=== PATIENT | male | born 1940 | race Caucasian/White ===

== ENCOUNTER → 2017-11-13 | Outpatient (CLI) | payer MEDICARE ==
[~2017-11-13] MED LIST: ACET500 PO; ALLO100 PO; AMLO10 PO; ASPI81CH PO; ASPI81EC PO; ATOR10 PO; Augmentin 875-1 EACH PO; CALACE667G PO; CALC.25 PO; CALC667 PO; CARV6.25 PO; CEPH250SUA PO; Cephalexin500 MG PO; ENALAPRIL; ERGO50000 PO; FENO145 PO; FINA5 PO; FISH1000 PO; FLUC150A PO; FLUC200 PO; FURO20 PO; FURO40 PO; FUROSEMIDE; GABA400 PO; GABA600 PO; GEMF600 PO; GLIM4 PO; GLIP10 PO; HYDACE5 PO; HYDACE5325 PO; HYDR1TAB94 PO; Humalog100 UNIT/1; INSLI100I SC; INSULANPEN SC; INSULIN; LIDO700A20 TOP; LOSA50 PO; MELATONIN5 M1 PO; METO50ER PO; MULVITMIND PO; MULVITMINF PO; MYRBETRIQ25 MG PO; Norco 5-325 Ta1 EACH PO; OXYC5 PO; PANT40 PO; PIOG15 PO; PRED20 PO; WARF10 PO; WARF5 PO; WARF7.5 PO; Zofran Odt4 MG SL; Zofran8 MG PO
== END | disposition home or self-care (01) ==
LOC: LAB 14:30
DX: N39.0 Urinary tract infection, site not specified (principal); E11.65 Type 2 diabetes mellitus with hyperglycemia
CPT/HCPCS: 87086

== ENCOUNTER 2018-03-03 11:30 | Emergency (ER) | payer MEDICARE ==
[~2018-03-03] VITALS: Ht 165.1 cm; Wt 90.7 kg
[~2018-03-03 11:30] MED LIST changes: -ATOR10 PO; -CEPH250SUA PO; -Cephalexin500 MG PO; -FLUC150A PO; -FLUC200 PO; -HYDR1TAB94 PO; -LIDO700A20 TOP; -MELATONIN5 M1 PO; +METO25 PO; -METO50ER PO; -OXYC5 PO; -PANT40 PO; -Zofran Odt4 MG SL; -Zofran8 MG PO
[2018-03-03 12:55] LABS: BASOPHILS ABSOLUTE AUTO 0.06 K/mm3 (0.00-0.23); BASOPHILS PERCENT AUTO 1 % (0-2); EOSINOPHILS ABSOLUTE AUTO 0.22 K/mm3 (0.00-0.68); EOSINOPHILS PERCENT AUTO 2 % (0-6); Hematocrit 37.2 % (37.0-53.0); Hemoglobin 12.2 g/dL (13.5-17.5); IMMATURE GRAN ABSOLUTE AUTO 0.03 K/mm3 (0.00-0.10); IMMATURE GRAN PERCENT AUTO 0 % (0-1); LYMPHOCYTES ABSOLUTE AUTO 1.28 K/mm3 (0.84-5.20); LYMPHOCYTES PERCENT AUTO 13 % (21-46); MONOCYTES PERCENT AUTO 8 % (4-13); Mean Corpuscular HGB 27.4 pg (26.0-34.0); Mean Corpuscular HGB Conc 32.8 g/dL (31.5-36.5); Mean Corpuscular Volume 83 fL (80-100); Mean Platelet Volume 8.7 fL (9.1-12.4); NEUTROPHILS ABSOLUTE AUTO 7.36 K/mm3 (1.96-9.15); NEUTROPHILS PERCENT AUTO 76 % (41-73); Platelet Count 251 K/mm3 (150-400); RDW Coefficient Variation 13.4 % (11.7-14.2); RDW Standard Deviation 41.3 fL (35.1-46.3); Red Blood Cell Count 4.46 M/mm3 (4.30-5.90); White Blood Cell Count 9.75 K/mm3 (4.00-11.30)
[2018-03-03 13:06] LABS: Albumin, Blood 3.5 g/dL (3.4-5.0); Albumin/Globulin Ratio 0.9 (0.8-1.8); Bilirubin, Total 0.7 mg/dL (0.1-1.0); Bun/Creatinine Ratio 13.1 (12.0-20.0); Creatinine, Blood 1.76 mg/dL (0.60-1.20); Globulin, Blood 3.9 g/dL (2.2-4.0); Potassium, Blood 4.3 mmol/L (3.5-5.5); Total Protein, Blood 7.4 g/dL (6.4-8.2)
[2018-03-03] MEDS ORDERED: Cephalexin500 MG PO (13:34)
== END 2018-03-03 14:42 | disposition home or self-care (01) ==
LOC: ER 11:30
PROVIDERS: Emergency Medicine
DX: R09.81 Nasal congestion (principal); I10 Essential (primary) hypertension; E11.42 Type 2 diabetes mellitus with diabetic polyneuropathy; Z79.899 Other long term (current) drug therapy; Z79.82 Long term (current) use of aspirin; Z79.4 Long term (current) use of insulin; Z79.01 Long term (current) use of anticoagulants
CPT/HCPCS: 36415; 71045; 80053; 85025; 93005; 93010; 99283

== ENCOUNTER → 2018-03-05 | Outpatient (CLI) | payer MEDICARE ==
[~2018-03-05] MED LIST changes: +Cephalexin500 MG PO
== END ==
LOC: PLD 13:55 → LAB SHORT 13:55
DX: C44.619 Basal cell carcinoma of skin of left upper limb, including shoulder (principal)
CPT/HCPCS: 88305

== ENCOUNTER 2018-03-28 20:50 | Inpatient (IN) | payer MEDICARE ==
[~2018-03-28] VITALS: Ht 177.8 cm; Wt 89.8 kg
[2018-03-28 21:08] LABS: BASOPHILS ABSOLUTE AUTO 0.02 K/mm3 (0.00-0.23); BASOPHILS PERCENT AUTO 0 % (0-2); EOSINOPHILS ABSOLUTE AUTO 0.03 K/mm3 (0.00-0.68); EOSINOPHILS PERCENT AUTO 0 % (0-6); Hematocrit 33.8 % (37.0-53.0); Hemoglobin 11.3 g/dL (13.5-17.5); IMMATURE GRAN ABSOLUTE AUTO 0.05 K/mm3 (0.00-0.10); IMMATURE GRAN PERCENT AUTO 0 % (0-1); LYMPHOCYTES ABSOLUTE AUTO 1.45 K/mm3 (0.84-5.20); LYMPHOCYTES PERCENT AUTO 11 % (21-46); MONOCYTES ABSOLUTE AUTO 2.18 K/mm3 (0.16-1.47); MONOCYTES PERCENT AUTO 17 % (4-13); Mean Corpuscular HGB 27.7 pg (26.0-34.0); Mean Corpuscular HGB Conc 33.4 g/dL (31.5-36.5); Mean Corpuscular Volume 83 fL (80-100); Mean Platelet Volume 9.2 fL (9.1-12.4); NEUTROPHILS ABSOLUTE AUTO 9.51 K/mm3 (1.96-9.15); NEUTROPHILS PERCENT AUTO 72 % (41-73); Platelet Count 129 K/mm3 (150-400); RDW Coefficient Variation 14.1 % (11.7-14.2); RDW Standard Deviation 42.6 fL (35.1-46.3); Red Blood Cell Count 4.08 M/mm3 (4.30-5.90); White Blood Cell Count 13.24 K/mm3 (4.00-11.30)
[2018-03-28 21:22] LABS: International Normalized Ratio 1.36; Prothrombin Time Results 14.3 Sec (9.7-11.5)
[2018-03-28 21:25] LABS: Albumin, Blood 3.3 g/dL (3.4-5.0); Albumin/Globulin Ratio 0.9 (0.8-1.8); Bilirubin, Total 1.4 mg/dL (0.1-1.0); Bun/Creatinine Ratio 13.5 (12.0-20.0); Calcium, Blood 9.1 mg/dL (8.5-10.1); Creatinine, Blood 1.85 mg/dL (0.60-1.20); Globulin, Blood 3.8 g/dL (2.2-4.0); Total Protein, Blood 7.1 g/dL (6.4-8.2)
[2018-03-28] MEDS ORDERED: ATOR10 PO (21:30)
[2018-03-28 22:35] LABS: Source, Urine Clean Catch
[2018-03-28 22:45] LABS: Appearance, Urine Clear (Clear); Bilirubin, Urine Neg (Neg); Blood, Urine 2+ (Neg); Color, Urine Yellow (P-Yellow); Glucose Qualitative, Urine Neg (Neg); Ketones, Urine Neg (Neg); Leukocyte Esterase, Urine 1+ (Neg); Nitrite, Urine Neg (Neg); Protein, Urine 3+ (Neg); Specific Gravity, Urine 1.015 (1.003-1.022); Urobilinogen, Urine NORM (Normal)
[2018-03-28 23:05] LABS: Amorphous Light (0-Heavy); Bacteria Few /hpf; Squamous Epithelial Cells Few /hpf (Few); White Blood Cells, Urine 0-2 /hpf (0-5)
[2018-03-28 23:56] LABS: C-REACTIVE PROTEIN, EXT RANGE 15.7 mg/dL (0.000-0.300)
[2018-03-29 00:14] LABS: Thyroid Stimulating Hormone 1.99 uIU/mL (0.360-4.800)
[2018-03-29 04:13] LABS: Source, Urine Clean Catch
[2018-03-29 04:16] LABS: Appearance, Urine Clear (Clear); Bilirubin, Urine Neg (Neg); Blood, Urine 2+ (Neg); Color, Urine Yellow (P-Yellow); Glucose Qualitative, Urine Neg (Neg); Ketones, Urine Neg (Neg); Leukocyte Esterase, Urine 1+ (Neg); Nitrite, Urine Neg (Neg); Protein, Urine 3+ (Neg); Specific Gravity, Urine 1.015 (1.003-1.022); Urobilinogen, Urine NORM (Normal)
[2018-03-29 05:00] LABS: Bacteria Few /hpf; Squamous Epithelial Cells Few /hpf (Few)
[2018-03-29 05:39] LABS: Mean Corpuscular HGB 26.6 pg (26.0-34.0); Mean Corpuscular HGB Conc 32.4 g/dL (31.5-36.5); Mean Corpuscular Volume 82 fL (80-100); Mean Platelet Volume 9.9 fL (9.1-12.4); Platelet Count 124 K/mm3 (150-400); RDW Coefficient Variation 14.2 % (11.7-14.2); RDW Standard Deviation 42.5 fL (35.1-46.3); Red Blood Cell Count 4.13 M/mm3 (4.30-5.90); White Blood Cell Count 12.28 K/mm3 (4.00-11.30)
[2018-03-29 05:51] LABS: International Normalized Ratio 1.37; Prothrombin Time Results 14.4 Sec (9.7-11.5)
[2018-03-30 05:18] LABS: Hematocrit 30.4 % (37.0-53.0); Mean Corpuscular HGB 27.2 pg (26.0-34.0); Mean Corpuscular HGB Conc 32.9 g/dL (31.5-36.5); Mean Corpuscular Volume 83 fL (80-100); Mean Platelet Volume 9.1 fL (9.1-12.4); Platelet Count 133 K/mm3 (150-400); RDW Standard Deviation 42.4 fL (35.1-46.3); Red Blood Cell Count 3.67 M/mm3 (4.30-5.90); White Blood Cell Count 10.61 K/mm3 (4.00-11.30)
[2018-03-30 05:33] LABS: International Normalized Ratio 1.56; Prothrombin Time Results 16.4 Sec (9.7-11.5)
[2018-03-30 05:38] LABS: Bun/Creatinine Ratio 15.7 (12.0-20.0); Calcium, Blood 8.3 mg/dL (8.5-10.1); Creatinine, Blood 1.85 mg/dL (0.60-1.20); Potassium, Blood 3.6 mmol/L (3.5-5.5)
[2018-03-31 04:20] LABS: BASOPHILS ABSOLUTE AUTO 0.02 K/mm3 (0.00-0.23); BASOPHILS PERCENT AUTO 0 % (0-2); EOSINOPHILS ABSOLUTE AUTO 0.05 K/mm3 (0.00-0.68); EOSINOPHILS PERCENT AUTO 0 % (0-6); Hemoglobin 10.8 g/dL (13.5-17.5); IMMATURE GRAN ABSOLUTE AUTO 0.05 K/mm3 (0.00-0.10); IMMATURE GRAN PERCENT AUTO 0 % (0-1); LYMPHOCYTES ABSOLUTE AUTO 1.04 K/mm3 (0.84-5.20); LYMPHOCYTES PERCENT AUTO 8 % (21-46); MONOCYTES ABSOLUTE AUTO 1.16 K/mm3 (0.16-1.47); MONOCYTES PERCENT AUTO 9 % (4-13); Mean Corpuscular HGB 27.1 pg (26.0-34.0); Mean Corpuscular HGB Conc 32.7 g/dL (31.5-36.5); Mean Corpuscular Volume 83 fL (80-100); Mean Platelet Volume 9.4 fL (9.1-12.4); NEUTROPHILS ABSOLUTE AUTO 10.26 K/mm3 (1.96-9.15); NEUTROPHILS PERCENT AUTO 82 % (41-73); Platelet Count 171 K/mm3 (150-400); RDW Coefficient Variation 14.2 % (11.7-14.2); RDW Standard Deviation 42.6 fL (35.1-46.3); Red Blood Cell Count 3.99 M/mm3 (4.30-5.90); White Blood Cell Count 12.58 K/mm3 (4.00-11.30)
[2018-03-31 04:34] LABS: Prothrombin Time Results 21.2 Sec (9.7-11.5)
[2018-03-31 04:35] LABS: Bun/Creatinine Ratio 18.5 (12.0-20.0); Calcium, Blood 8.5 mg/dL (8.5-10.1); Creatinine, Blood 1.95 mg/dL (0.60-1.20); Potassium, Blood 4.1 mmol/L (3.5-5.5)
[2018-04-01 04:27] LABS: International Normalized Ratio 3.28; Prothrombin Time Results 35.4 Sec (9.7-11.5)
[2018-04-02 08:43] LABS: BASOPHILS ABSOLUTE AUTO 0.03 K/mm3 (0.00-0.23); BASOPHILS PERCENT AUTO 0 % (0-2); EOSINOPHILS ABSOLUTE AUTO 0.19 K/mm3 (0.00-0.68); EOSINOPHILS PERCENT AUTO 2 % (0-6); Hematocrit 32.2 % (37.0-53.0); Hemoglobin 10.5 g/dL (13.5-17.5); IMMATURE GRAN ABSOLUTE AUTO 0.02 K/mm3 (0.00-0.10); IMMATURE GRAN PERCENT AUTO 0 % (0-1); LYMPHOCYTES ABSOLUTE AUTO 1.06 K/mm3 (0.84-5.20); LYMPHOCYTES PERCENT AUTO 14 % (21-46); MONOCYTES ABSOLUTE AUTO 0.93 K/mm3 (0.16-1.47); MONOCYTES PERCENT AUTO 12 % (4-13); Mean Corpuscular HGB 26.9 pg (26.0-34.0); Mean Corpuscular HGB Conc 32.6 g/dL (31.5-36.5); Mean Corpuscular Volume 82 fL (80-100); Mean Platelet Volume 8.9 fL (9.1-12.4); NEUTROPHILS PERCENT AUTO 72 % (41-73); Platelet Count 223 K/mm3 (150-400); RDW Coefficient Variation 13.9 % (11.7-14.2); RDW Standard Deviation 41.8 fL (35.1-46.3); Red Blood Cell Count 3.91 M/mm3 (4.30-5.90); White Blood Cell Count 7.83 K/mm3 (4.00-11.30)
[2018-04-02 08:49] LABS: International Normalized Ratio 2.79; Prothrombin Time Results 29.9 Sec (9.7-11.5)
[2018-04-02 09:01] LABS: Anion Gap 12 mmol/L (6-16); Blood Urea Nitrogen 44 mg/dL (8-24); Bun/Creatinine Ratio 22.8 (12.0-20.0); CO2, Blood 27 mmol/L (21-32); Calcium, Blood 8.4 mg/dL (8.5-10.1); Chloride, Blood 103 mmol/L (98-108); Creatinine, Blood 1.93 mg/dL (0.60-1.20); Glomerular Filtration Rate 36 (60-); Glucose, Blood 81 mg/dL (70-99); Potassium, Blood 3.3 mmol/L (3.5-5.5); Sodium, Blood 142 mmol/L (136-145); Vancomycin, Trough 19.7 ug/mL (5.0-10.0)
[2018-04-03 04:00] LABS: Calcium, Blood 8.1 mg/dL (8.5-10.1); Creatinine, Blood 1.92 mg/dL (0.60-1.20); Potassium, Blood 3.3 mmol/L (3.5-5.5)
[2018-04-03 07:14] LABS: International Normalized Ratio 2.63; Prothrombin Time Results 28.2 Sec (9.7-11.5)
[2018-04-03] MEDS ORDERED: CEPH250SUA PO (10:59)
== END 2018-04-03 11:17 | disposition home or self-care (01) | DRG 602 ==
LOC: ER 20:50 → MEDS 23:18 → PCU 03-29 00:18 → MEDS 03-29 00:30 → PCU 03-31 08:06 → MEDS 04-02 13:58 → ENPENDDIS 04-03 09:00 → MEDS 04-03 11:17
PROVIDERS: Emergency Medicine; Hospitalist; Internal Medicine; Pharmacist
DX: L03.113 Cellulitis of right upper limb (principal); G92 Toxic encephalopathy; J96.01 Acute respiratory failure with hypoxia; J98.11 Atelectasis; E11.22 Type 2 diabetes mellitus with diabetic chronic kidney disease; I12.9 Hypertensive chronic kidney disease with stage 1 through stage 4 chronic kidney disease, or unspecified chronic kidney disease; N18.3 Chronic kidney disease, stage 3 (moderate); M10.9 Gout, unspecified; Z86.73 Personal history of transient ischemic attack (TIA), and cerebral infarction without residual deficits; Z95.2 Presence of prosthetic heart valve; G62.9 Polyneuropathy, unspecified; I48.91 Unspecified atrial fibrillation
CPT/HCPCS: 36415; 70450; 71046; 71250; 73070; 73090; 73130; 73200; 80048; 80053; 80202; 81001; 82607; 82947; 83605; 83880; 84145; 84443; 85025; 85027; 85610; 85651; 86140; 87040; 87086; 93005; 93010; 94667; 96365; 97110; 97116; 97161; 97165; 97530; 97535; 99285; G8978; G8979; G8987; G8988; J0690; J1650; J1815; J1940; J2405; J2543; J3370; J7030; J7050

== ENCOUNTER 2018-04-11 09:27 | Inpatient (IN) | payer MEDICARE ==
[~2018-04-11] VITALS: Ht 162.6 cm; Wt 82.9 kg
[~2018-04-11 09:27] MED LIST changes: +ATOR10 PO; +CEPH250SUA PO
[2018-04-11 10:24] LABS: Source, Urine Clean Catch
[2018-04-11 10:30] LABS: BASOPHILS ABSOLUTE AUTO 0.05 K/mm3 (0.00-0.23); BASOPHILS PERCENT AUTO 0 % (0-2); EOSINOPHILS ABSOLUTE AUTO 0.08 K/mm3 (0.00-0.68); EOSINOPHILS PERCENT AUTO 1 % (0-6); Hematocrit 31.6 % (37.0-53.0); Hemoglobin 10.2 g/dL (13.5-17.5); IMMATURE GRAN PERCENT AUTO 1 % (0-1); LYMPHOCYTES ABSOLUTE AUTO 1.41 K/mm3 (0.84-5.20); LYMPHOCYTES PERCENT AUTO 9 % (21-46); MONOCYTES ABSOLUTE AUTO 2.42 K/mm3 (0.16-1.47); MONOCYTES PERCENT AUTO 16 % (4-13); Mean Corpuscular HGB 26.8 pg (26.0-34.0); Mean Corpuscular HGB Conc 32.3 g/dL (31.5-36.5); Mean Corpuscular Volume 83 fL (80-100); Mean Platelet Volume 8.6 fL (9.1-12.4); NEUTROPHILS PERCENT AUTO 74 % (41-73); Platelet Count 257 K/mm3 (150-400); RDW Coefficient Variation 14.2 % (11.7-14.2); RDW Standard Deviation 42.6 fL (35.1-46.3); Red Blood Cell Count 3.81 M/mm3 (4.30-5.90); White Blood Cell Count 15.56 K/mm3 (4.00-11.30)
[2018-04-11 10:32] LABS: Bilirubin, Urine Neg (Neg); Blood, Urine 4+ (Neg); Glucose Qualitative, Urine Neg (Neg); Ketones, Urine Neg (Neg); Leukocyte Esterase, Urine 3+ (Neg); Nitrite, Urine Neg (Neg); Protein, Urine 3+ (Neg); Specific Gravity, Urine 1.015 (1.003-1.022); Urobilinogen, Urine NORM (Normal)
[2018-04-11 10:47] LABS: Albumin, Blood 2.8 g/dL (3.4-5.0); Albumin/Globulin Ratio 0.7 (0.8-1.8); Bilirubin, Total 1.6 mg/dL (0.1-1.0); Bun/Creatinine Ratio 15.6 (12.0-20.0); Calcium, Blood 8.8 mg/dL (8.5-10.1); Creatinine, Blood 2.05 mg/dL (0.60-1.20); Globulin, Blood 4.2 g/dL (2.2-4.0); Potassium, Blood 4.8 mmol/L (3.5-5.5)
[2018-04-11 10:53] LABS: International Normalized Ratio 1.54; Prothrombin Time Results 16.2 Sec (9.7-11.5)
[2018-04-11 11:15] LABS: Appearance, Urine Cloudy (Clear); Color, Urine Yellow (P-Yellow)
[2018-04-11] MEDS ORDERED: MELA3 PO (11:15)
[2018-04-11 11:18] LABS: White Blood Cells, Urine TNTC /hpf (0-5)
[2018-04-11 11:20] LABS: Bacteria Mod /hpf; Squamous Epithelial Cells Few /hpf (Few); Yeast/Fungi Urine Mod /hpf
[2018-04-11] MEDS ORDERED: ACET500 PO (17:17)
[2018-04-11] MEDS ORDERED: OXYC5 PO (17:17)
[2018-04-12 05:19] LABS: BASOPHILS ABSOLUTE AUTO 0.06 K/mm3 (0.00-0.23); BASOPHILS PERCENT AUTO 0 % (0-2); EOSINOPHILS ABSOLUTE AUTO 0.11 K/mm3 (0.00-0.68); EOSINOPHILS PERCENT AUTO 1 % (0-6); Hematocrit 30.7 % (37.0-53.0); Hemoglobin 9.9 g/dL (13.5-17.5); IMMATURE GRAN PERCENT AUTO 1 % (0-1); LYMPHOCYTES ABSOLUTE AUTO 1.39 K/mm3 (0.84-5.20); LYMPHOCYTES PERCENT AUTO 7 % (21-46); MONOCYTES ABSOLUTE AUTO 2.61 K/mm3 (0.16-1.47); MONOCYTES PERCENT AUTO 14 % (4-13); Mean Corpuscular HGB 26.5 pg (26.0-34.0); Mean Corpuscular HGB Conc 32.2 g/dL (31.5-36.5); Mean Corpuscular Volume 82 fL (80-100); Mean Platelet Volume 8.7 fL (9.1-12.4); NEUTROPHILS ABSOLUTE AUTO 14.45 K/mm3 (1.96-9.15); NEUTROPHILS PERCENT AUTO 77 % (41-73); Platelet Count 258 K/mm3 (150-400); RDW Standard Deviation 42.3 fL (35.1-46.3); Red Blood Cell Count 3.73 M/mm3 (4.30-5.90); White Blood Cell Count 18.72 K/mm3 (4.00-11.30)
[2018-04-12 05:32] LABS: International Normalized Ratio 1.65; Prothrombin Time Results 17.4 Sec (9.7-11.5)
[2018-04-12 05:41] LABS: Bun/Creatinine Ratio 17.4 (12.0-20.0); Calcium, Blood 8.8 mg/dL (8.5-10.1); Creatinine, Blood 2.18 mg/dL (0.60-1.20); Potassium, Blood 4.5 mmol/L (3.5-5.5)
[2018-04-13 05:35] LABS: International Normalized Ratio 1.73; Prothrombin Time Results 18.3 Sec (9.7-11.5)
[2018-04-14 05:22] LABS: Hematocrit 28.2 % (37.0-53.0); Hemoglobin 9.2 g/dL (13.5-17.5); Mean Corpuscular HGB 26.9 pg (26.0-34.0); Mean Corpuscular HGB Conc 32.6 g/dL (31.5-36.5); Mean Corpuscular Volume 83 fL (80-100); Mean Platelet Volume 8.6 fL (9.1-12.4); Platelet Count 268 K/mm3 (150-400); RDW Standard Deviation 41.7 fL (35.1-46.3); Red Blood Cell Count 3.42 M/mm3 (4.30-5.90); White Blood Cell Count 10.43 K/mm3 (4.00-11.30)
[2018-04-14 05:36] LABS: International Normalized Ratio 2.74; Prothrombin Time Results 29.4 Sec (9.7-11.5)
[2018-04-14 05:42] LABS: Bun/Creatinine Ratio 22.9 (12.0-20.0); Calcium, Blood 8.9 mg/dL (8.5-10.1); Creatinine, Blood 2.05 mg/dL (0.60-1.20); Potassium, Blood 3.8 mmol/L (3.5-5.5)
[2018-04-14] MEDS ORDERED: FLUC200 PO (12:27)
== END 2018-04-14 13:49 | disposition home or self-care (01) | DRG 291 ==
LOC: ER 09:27 → MEDS 12:19 → ENPENDDIS 04-14 11:00 → MEDS 04-14 13:49
PROVIDERS: Emergency Medicine; Family Medicine; Internal Medicine
DX: I13.0 Hypertensive heart and chronic kidney disease with heart failure and stage 1 through stage 4 chronic kidney disease, or unspecified chronic kidney disease (principal); J96.01 Acute respiratory failure with hypoxia; G92 Toxic encephalopathy; I50.33 Acute on chronic diastolic (congestive) heart failure; B37.49 Other urogenital candidiasis; M10.9 Gout, unspecified; E11.42 Type 2 diabetes mellitus with diabetic polyneuropathy; Z79.4 Long term (current) use of insulin; Z79.01 Long term (current) use of anticoagulants; N18.3 Chronic kidney disease, stage 3 (moderate); I67.9 Cerebrovascular disease, unspecified; G89.29 Other chronic pain; Z79.891 Long term (current) use of opiate analgesic; R26.89 Other abnormalities of gait and mobility; Z95.2 Presence of prosthetic heart valve; D72.829 Elevated white blood cell count, unspecified; I70.90 Unspecified atherosclerosis; I08.3 Combined rheumatic disorders of mitral, aortic and tricuspid valves; E11.22 Type 2 diabetes mellitus with diabetic chronic kidney disease
CPT/HCPCS: 36415; 71046; 80048; 80053; 81001; 82947; 83605; 83880; 84484; 85025; 85027; 85610; 85730; 87040; 87086; 93005; 93010; 93306; 93971; 96365; 96366; 96367; 96375; 97110; 97116; 97161; 97166; 97535; 99285; G8978; G8979; G8987; G8988; J0696; J1815; J1940; J2405; J2543; J3370; J7030

== ENCOUNTER 2018-05-03 10:19 | Emergency (ER) | payer MEDICARE ==
[~2018-05-03] VITALS: Ht 165.1 cm; Wt 167.0 kg
[~2018-05-03 10:19] MED LIST changes: +FLUC200 PO; +MELA3 PO; +OXYC5 PO
[2018-05-03] MEDS ORDERED: FINA5 PO (10:35)
[2018-05-03] MEDS ORDERED: PANT40 PO (10:37)
[2018-05-03 10:57] LABS: BASOPHILS ABSOLUTE AUTO 0.04 K/mm3 (0.00-0.23); BASOPHILS PERCENT AUTO 1 % (0-2); EOSINOPHILS ABSOLUTE AUTO 0.15 K/mm3 (0.00-0.68); EOSINOPHILS PERCENT AUTO 3 % (0-6); Hematocrit 39.2 % (37.0-53.0); Hemoglobin 12.6 g/dL (13.5-17.5); IMMATURE GRAN ABSOLUTE AUTO 0.01 K/mm3 (0.00-0.10); IMMATURE GRAN PERCENT AUTO 0 % (0-1); LYMPHOCYTES ABSOLUTE AUTO 1.36 K/mm3 (0.84-5.20); LYMPHOCYTES PERCENT AUTO 25 % (21-46); MONOCYTES ABSOLUTE AUTO 0.63 K/mm3 (0.16-1.47); MONOCYTES PERCENT AUTO 12 % (4-13); Mean Corpuscular HGB 26.2 pg (26.0-34.0); Mean Corpuscular HGB Conc 32.1 g/dL (31.5-36.5); Mean Corpuscular Volume 82 fL (80-100); Mean Platelet Volume 8.6 fL (9.1-12.4); NEUTROPHILS PERCENT AUTO 60 % (41-73); Platelet Count 155 K/mm3 (150-400); RDW Coefficient Variation 16.5 % (11.7-14.2); RDW Standard Deviation 48.6 fL (35.1-46.3); Red Blood Cell Count 4.81 M/mm3 (4.30-5.90); White Blood Cell Count 5.49 K/mm3 (4.00-11.30)
[2018-05-03 11:15] LABS: Troponin I 0.05 ng/mL (0.000-0.040)
[2018-05-03 11:17] LABS: Albumin, Blood 3.5 g/dL (3.4-5.0); Albumin/Globulin Ratio 0.9 (0.8-1.8); Bilirubin, Total 0.7 mg/dL (0.1-1.0); Bun/Creatinine Ratio 23.9 (12.0-20.0); Calcium, Blood 9.1 mg/dL (8.5-10.1); Creatinine, Blood 1.76 mg/dL (0.60-1.20); Globulin, Blood 4.1 g/dL (2.2-4.0); Potassium, Blood 3.7 mmol/L (3.5-5.5); Total Protein, Blood 7.6 g/dL (6.4-8.2)
[2018-05-03] MEDS ORDERED: Zofran Odt4 MG SL (13:03)
[2018-05-03] MEDS ORDERED: FLUC150A PO (13:04)
== END 2018-05-03 13:26 | disposition home or self-care (01) ==
LOC: ER 10:19
PROVIDERS: Emergency Medicine
DX: K52.9 Noninfective gastroenteritis and colitis, unspecified (principal); B37.0 Candidal stomatitis; I10 Essential (primary) hypertension; E11.42 Type 2 diabetes mellitus with diabetic polyneuropathy; Z79.899 Other long term (current) drug therapy; Z79.01 Long term (current) use of anticoagulants; Z79.4 Long term (current) use of insulin
CPT/HCPCS: 36415; 74022; 80053; 83690; 84484; 85025; 93005; 93010; 96361; 96374; 99283; J2405; J7030

== ENCOUNTER 2018-06-17 12:28 | Emergency (ER) | payer MEDICARE ==
[~2018-06-17] VITALS: Ht 165.1 cm; Wt 78.9 kg
[~2018-06-17 12:28] MED LIST changes: +FLUC150A PO; +PANT40 PO; +Zofran Odt4 MG SL
[2018-06-17 13:59] LABS: BASOPHILS ABSOLUTE AUTO 0.02 K/mm3 (0.00-0.23); BASOPHILS PERCENT AUTO 0 % (0-2); EOSINOPHILS ABSOLUTE AUTO 0.16 K/mm3 (0.00-0.68); EOSINOPHILS PERCENT AUTO 2 % (0-6); IMMATURE GRAN ABSOLUTE AUTO 0.02 K/mm3 (0.00-0.10); IMMATURE GRAN PERCENT AUTO 0 % (0-1); LYMPHOCYTES ABSOLUTE AUTO 1.38 K/mm3 (0.84-5.20); LYMPHOCYTES PERCENT AUTO 14 % (21-46); MONOCYTES ABSOLUTE AUTO 0.84 K/mm3 (0.16-1.47); MONOCYTES PERCENT AUTO 8 % (4-13); Mean Corpuscular HGB 25.4 pg (26.0-34.0); Mean Corpuscular HGB Conc 31.6 g/dL (31.5-36.5); Mean Corpuscular Volume 81 fL (80-100); Mean Platelet Volume 9.2 fL (9.1-12.4); NEUTROPHILS ABSOLUTE AUTO 7.68 K/mm3 (1.96-9.15); NEUTROPHILS PERCENT AUTO 76 % (41-73); Platelet Count 145 K/mm3 (150-400); RDW Coefficient Variation 16.2 % (11.7-14.2); RDW Standard Deviation 47.3 fL (35.1-46.3); Red Blood Cell Count 4.72 M/mm3 (4.30-5.90)
[2018-06-17 14:12] LABS: International Normalized Ratio 1.11; Prothrombin Time Results 11.4 Sec (9.7-11.5)
[2018-06-17 14:51] LABS: Bun/Creatinine Ratio 24.3 (12.0-20.0); Calcium, Blood 9.1 mg/dL (8.5-10.1); Creatinine, Blood 1.48 mg/dL (0.60-1.20); Potassium, Blood 4.2 mmol/L (3.5-5.5)
[2018-06-17] MEDS ORDERED: HYDR1TAB94 PO (16:11)
[2018-06-17] MEDS ORDERED: LIDO700A20 TOP (16:11)
== END 2018-06-17 16:13 | disposition home or self-care (01) ==
LOC: ER 12:28
PROVIDERS: Emergency Medicine
DX: S50.11XA Contusion of right forearm, initial encounter (principal); S60.211A Contusion of right wrist, initial encounter; S00.81XA Abrasion of other part of head, initial encounter; R07.81 Pleurodynia; I10 Essential (primary) hypertension; E11.42 Type 2 diabetes mellitus with diabetic polyneuropathy; Z79.899 Other long term (current) drug therapy; Z79.01 Long term (current) use of anticoagulants; Z79.4 Long term (current) use of insulin; W19.XXXA Unspecified fall, initial encounter
CPT/HCPCS: 70450; 71046; 73080; 73110; 80048; 85025; 85610; 93005; 93010; 99284-25

== ENCOUNTER 2018-07-07 10:52 | Emergency (ER) | payer MEDICARE ==
[~2018-07-07] VITALS: Ht 165.1 cm; Wt 78.9 kg
[~2018-07-07 10:52] MED LIST changes: +HYDR1TAB94 PO; +LIDO700A20 TOP
[2018-07-07 11:40] LABS: BASOPHILS ABSOLUTE AUTO 0.03 K/mm3 (0.00-0.23); BASOPHILS PERCENT AUTO 0 % (0-2); EOSINOPHILS ABSOLUTE AUTO 0.13 K/mm3 (0.00-0.68); EOSINOPHILS PERCENT AUTO 2 % (0-6); Hematocrit 38.8 % (37.0-53.0); Hemoglobin 12.2 g/dL (13.5-17.5); IMMATURE GRAN ABSOLUTE AUTO 0.01 K/mm3 (0.00-0.10); IMMATURE GRAN PERCENT AUTO 0 % (0-1); LYMPHOCYTES ABSOLUTE AUTO 1.18 K/mm3 (0.84-5.20); LYMPHOCYTES PERCENT AUTO 16 % (21-46); MONOCYTES ABSOLUTE AUTO 0.64 K/mm3 (0.16-1.47); MONOCYTES PERCENT AUTO 8 % (4-13); Mean Corpuscular HGB 25.4 pg (26.0-34.0); Mean Corpuscular HGB Conc 31.4 g/dL (31.5-36.5); Mean Corpuscular Volume 81 fL (80-100); Mean Platelet Volume 8.9 fL (9.1-12.4); NEUTROPHILS PERCENT AUTO 74 % (41-73); Platelet Count 144 K/mm3 (150-400); RDW Coefficient Variation 16.9 % (11.7-14.2); RDW Standard Deviation 49.5 fL (35.1-46.3); White Blood Cell Count 7.59 K/mm3 (4.00-11.30)
[2018-07-07 11:53] LABS: Albumin, Blood 3.6 g/dL (3.4-5.0); Bun/Creatinine Ratio 15.7 (12.0-20.0); Calcium, Blood 8.7 mg/dL (8.5-10.1); Creatinine, Blood 1.66 mg/dL (0.60-1.20); Globulin, Blood 3.6 g/dL (2.2-4.0); Potassium, Blood 3.6 mmol/L (3.5-5.5); Total Protein, Blood 7.2 g/dL (6.4-8.2)
[2018-07-07 12:45] LABS: Troponin I 0.068 ng/mL (0.000-0.040)
[2018-07-07 12:49] LABS: International Normalized Ratio 1.38
== END 2018-07-07 14:10 | disposition home or self-care (01) ==
LOC: ER 10:52
PROVIDERS: Physician Assistant
DX: R06.00 Dyspnea, unspecified (principal); I10 Essential (primary) hypertension; E11.42 Type 2 diabetes mellitus with diabetic polyneuropathy; Z79.899 Other long term (current) drug therapy; Z79.01 Long term (current) use of anticoagulants; Z79.4 Long term (current) use of insulin
CPT/HCPCS: 36415; 71046; 80053; 83880; 84484; 85025; 85610; 93005; 93010; 94640; 99285-25

== ENCOUNTER → 2018-07-08 | Outpatient (CLI) | payer MEDICARE | END | disposition home or self-care (01) | LOC: LAB SHORT 10:35 → LAB EV 10:35 | DX: I50.9 Heart failure, unspecified (principal) | CPT/HCPCS: 84484 ==

== ENCOUNTER → 2018-10-30 | Outpatient (CLI) | payer MEDICARE ==
[~2018-10-30] MED LIST changes: -MELA3 PO; +MELATONIN5 M1 PO; -METO25 PO; +METO50ER PO; +Zofran8 MG PO
== END | disposition home or self-care (01) ==
LOC: LAB EV 15:10 → LAB SHORT 15:10
DX: R35.0 Frequency of micturition (principal)
CPT/HCPCS: 87086

== ENCOUNTER 2018-11-14 13:49 | Emergency (ER) | payer MEDICARE ==
[~2018-11-14] VITALS: Ht 162.6 cm; Wt 76.2 kg
[~2018-11-14 13:49] MED LIST changes: +MELATONIN 5 MG1 EACH PO; -MELATONIN5 M1 PO
[2018-11-14] MEDS ORDERED: Norco 5-325 Ta1 EACH PO (16:16)
[2018-11-14] MEDS ORDERED: LEVFLO500 PO (16:16)
[2018-11-14 16:36] LABS: Source, Urine Clean Catch
[2018-11-14 16:39] LABS: Appearance, Urine Hazy (Clear); Bilirubin, Urine Neg (Neg); Blood, Urine 3+ (Neg); Color, Urine Yellow (P-Yellow); Glucose Qualitative, Urine 2+ (Neg); Ketones, Urine Neg (Neg); Leukocyte Esterase, Urine 3+ (Neg); Nitrite, Urine Neg (Neg); Protein, Urine 2+ (Neg); Urobilinogen, Urine NORM (Normal); pH, Urine 6.5 (5.0-8.0)
[2018-11-14 16:58] LABS: Squamous Epithelial Cells Rare /hpf (Few)
[2018-11-14 16:59] LABS: Red Blood Cells, Urine TNTC /hpf (0-2); White Blood Cells, Urine 50-100 /hpf (0-5)
[2018-11-14 17:00] LABS: Bacteria Rare /hpf
== END 2018-11-14 16:55 | disposition home or self-care (01) ==
LOC: ER 13:49
PROVIDERS: Physician Assistant
DX: N45.3 Epididymo-orchitis (principal); I10 Essential (primary) hypertension; E11.42 Type 2 diabetes mellitus with diabetic polyneuropathy
CPT/HCPCS: 76870; 81001; 87086; 99284-25

== ENCOUNTER → 2018-11-15 | Outpatient (CLI) | payer MEDICARE ==
[~2018-11-15] MED LIST changes: +ACET325; +BUME2 PO; +CALCIUM PO; +Clotrimazole15 GM TOP; +ENTRESTO 97 MG1 EACH PO; +FLUC100; +LEVFLO500 PO; +LEVO750 PO; +METO2.5 PO; +Percocet 5-3251 EACH PO; +SPIR25 PO; +TAMS.4ER PO
== END | disposition home or self-care (01) ==
LOC: LAB SHORT 19:01 → LAB EV 19:01
DX: N45.3 Epididymo-orchitis (principal)
CPT/HCPCS: 87086

== ENCOUNTER 2018-11-20 11:50 | Inpatient (IN) | payer MEDICARE ==
[~2018-11-20] VITALS: Ht 160 cm; Wt 77.2 kg
[~2018-11-20 11:50] MED LIST changes: -ACET325; -BUME2 PO; -CALCIUM PO; -Clotrimazole15 GM TOP; -ENTRESTO 97 MG1 EACH PO; -FLUC100; -LEVO750 PO; -METO2.5 PO; -Percocet 5-3251 EACH PO; -SPIR25 PO; -TAMS.4ER PO
[2018-11-20 13:07] LABS: BASOPHILS ABSOLUTE AUTO 0.04 K/mm3 (0.00-0.23); BASOPHILS PERCENT AUTO 0 % (0-2); EOSINOPHILS ABSOLUTE AUTO 0.17 K/mm3 (0.00-0.68); EOSINOPHILS PERCENT AUTO 2 % (0-6); Hematocrit 36.3 % (37.0-53.0); Hemoglobin 11.6 g/dL (13.5-17.5); IMMATURE GRAN ABSOLUTE AUTO 0.04 K/mm3 (0.00-0.10); IMMATURE GRAN PERCENT AUTO 0 % (0-1); LYMPHOCYTES ABSOLUTE AUTO 1.12 K/mm3 (0.84-5.20); LYMPHOCYTES PERCENT AUTO 10 % (21-46); MONOCYTES ABSOLUTE AUTO 1.07 K/mm3 (0.16-1.47); MONOCYTES PERCENT AUTO 9 % (4-13); Mean Corpuscular HGB 27.4 pg (26.0-34.0); Mean Corpuscular Volume 86 fL (80-100); NEUTROPHILS ABSOLUTE AUTO 8.94 K/mm3 (1.96-9.15); NEUTROPHILS PERCENT AUTO 79 % (41-73); Platelet Count 150 K/mm3 (150-400); RDW Standard Deviation 47.4 fL (35.1-46.3); Red Blood Cell Count 4.24 M/mm3 (4.30-5.90); White Blood Cell Count 11.38 K/mm3 (4.00-11.30)
[2018-11-20 13:14] LABS: Source, Urine Clean Catch
[2018-11-20 13:17] LABS: Bilirubin, Urine Neg (Neg); Blood, Urine 4+ (Neg); Glucose Qualitative, Urine Neg (Neg); Ketones, Urine Neg (Neg); Leukocyte Esterase, Urine 3+ (Neg); Nitrite, Urine Neg (Neg); Protein, Urine 3+ (Neg); Specific Gravity, Urine 1.015 (1.003-1.022); Urobilinogen, Urine NORM (Normal)
[2018-11-20 13:21] LABS: Bun/Creatinine Ratio 22.1 (12.0-20.0); Calcium, Blood 9.6 mg/dL (8.5-10.1); Creatinine, Blood 2.62 mg/dL (0.60-1.20); Potassium, Blood 4.7 mmol/L (3.5-5.5)
[2018-11-20 13:27] LABS: International Normalized Ratio 1.72; Prothrombin Time Results 17.2 Sec (9.7-11.5)
[2018-11-20 14:19] LABS: Appearance, Urine Cloudy (Clear); Color, Urine Yellow (P-Yellow)
[2018-11-20 14:20] LABS: White Blood Cells, Urine TNTC /hpf (0-5)
[2018-11-20 14:23] LABS: Bacteria Few /hpf; Squamous Epithelial Cells Not Seen /hpf (Few)
[2018-11-20] MEDS ORDERED: FLUC200 PO (15:12)
[2018-11-20] MEDS ORDERED: Percocet 5-3251 EACH PO (15:13)
--- NOTE | 2018-11-20 18:39 | NUR ---
PT ADMITTED PT ADMITTED AT 1805 IN STABLE CONDITION. VSS. PT STATES HE HAD PAIN IN HIS SCROTAL REGION. MEDICATED PER EMAR. PT URINATED UPON COMING TO THE FLOOR. PT STATES HE HAS BEEN HAVING FREQUENT URINATION. FAMILY AT BEDSIDE. WILL CONTINUE TO MONITOR UNTIL TURNOVER IS COMPLETE.
[2018-11-20 20:46] LABS: Source, Urine Catheter
[2018-11-20 20:47] LABS: Bilirubin, Urine Neg (Neg); Blood, Urine 4+ (Neg); Glucose Qualitative, Urine Neg (Neg); Ketones, Urine Neg (Neg); Leukocyte Esterase, Urine 3+ (Neg); Nitrite, Urine Neg (Neg); Protein, Urine 3+ (Neg); Specific Gravity, Urine 1.015 (1.003-1.022); Urobilinogen, Urine NORM (Normal)
[2018-11-20 20:55] LABS: Appearance, Urine Turbid (Clear); Color, Urine Yellow (P-Yellow)
[2018-11-20 20:56] LABS: White Blood Cells, Urine TNTC /hpf (0-5)
[2018-11-20 20:57] LABS: Bacteria Mod /hpf; Squamous Epithelial Cells Not Seen /hpf (Few)
--- NOTE | 2018-11-21 04:47 | NUR ---
SHIFT SUMMARY PT NEW ADMIT THIS EVENING JUST BEFORE SHIFT CHANGE. PT'S SCROTUM SWOLLEN AND RED. APPROX THE SIZE OF A BASEBALL. SCROTUM PAINFUL ESPECIALLY WITH MOVEMENT. PT URINATING FREQUENTLY AND WITH DIFFICULTY. EDUARDO CATH PLACED. URINE YELLOW AND VERY CLOUDY. PT RECIEVED NORCO JUST BEFORE SHIFT CHANGE. UNEFFECTIVE WITH PT CONTINUING TO REPORT 9/10 PAIN. NEW ORDER FOR FENTANYL. FENTANYL 25 MCG GIVEN. PT DROWSY AFTER FENTANYL. SLEEPING THROUGH MUCH OF THE NIGHT. WAKING UNSURE OF WHERE HE WAS BUT EASILY REDIRECTED. PT RESTING AT THIS TIME. VSS. WILL CONTINUE TO MONITOR AND REPORT TO DAY RN.
[2018-11-21 05:29] LABS: Hematocrit 33.6 % (37.0-53.0); Hemoglobin 10.6 g/dL (13.5-17.5); Mean Corpuscular HGB 27.5 pg (26.0-34.0); Mean Corpuscular HGB Conc 31.5 g/dL (31.5-36.5); Mean Corpuscular Volume 87 fL (80-100); Mean Platelet Volume 8.9 fL (9.1-12.4); Platelet Count 115 K/mm3 (150-400); RDW Coefficient Variation 14.9 % (11.7-14.2); RDW Standard Deviation 48.1 fL (35.1-46.3); Red Blood Cell Count 3.85 M/mm3 (4.30-5.90); White Blood Cell Count 8.44 K/mm3 (4.00-11.30)
[2018-11-21 05:43] LABS: International Normalized Ratio 1.53; Prothrombin Time Results 15.4 Sec (9.7-11.5)
[2018-11-21 05:59] LABS: Alanine Aminotransfer (ALT/SGP 18 U/L (12-78); Albumin, Blood 2.7 g/dL (3.4-5.0); Albumin/Globulin Ratio 0.8 (0.8-1.8); Alk Phos 102 U/L (50-136); Anion Gap 7 mmol/L (6-16); Aspartate Aminotrans (AST/SGOT 26 U/L (12-37); Bilirubin, Total 0.6 mg/dL (0.1-1.0); Blood Urea Nitrogen 55 mg/dL (8-24); CO2, Blood 25 mmol/L (21-32); Calcium, Blood 8.5 mg/dL (8.5-10.1); Chloride, Blood 109 mmol/L (98-108); Creatinine, Blood 2.39 mg/dL (0.60-1.20); Globulin, Blood 3.5 g/dL (2.2-4.0); Glomerular Filtration Rate 28 (60-); Glucose, Blood 101 mg/dL (70-99); Potassium, Blood 4.7 mmol/L (3.5-5.5); Sodium, Blood 141 mmol/L (136-145); Total Protein, Blood 6.2 g/dL (6.4-8.2); Vancomycin, Random 13.7 ug/mL
[2018-11-21] MEDS ORDERED: ENTRESTO 97 MG1 EACH PO (16:23)
[2018-11-21] MEDS ORDERED: SPIR25 PO (16:28)
[2018-11-21] MEDS ORDERED: LEVFLO500 PO (16:32)
[2018-11-21] MEDS ORDERED: ASPI81CH PO (16:33)
[2018-11-21] MEDS ORDERED: CALCIUM PO (16:35)
--- NOTE | 2018-11-21 17:47 | NUR ---
SHIFT SUMMARY PT IS ALERT AND ORIENTED TO PERSON, PLACE AND TIME. HE IS COOPERATIVE WITH CARE. PT HAS COMPLAINED OF SCROTAL PAIN TWICE TODAY, MEDICATED BOTH TIMES ALONG WITH USING NON PHARMACOLOGICAL INTERVENTIONS SUCH WALKING, REPOSITIONING AND A COOL CLOTH. PT REFUSED BREAKFAST, AND ATE 50% OF LUNCH. PATIENT MENTIONED THAT HE BELIEVES HIS SCROTUM HAS DECREASED IN SIXE FROM LAST NIGHT. WILL CONTINUE TO MONITOR.
[2018-11-22 05:22] LABS: International Normalized Ratio 2.26; Prothrombin Time Results 22.2 Sec (9.7-11.5)
--- NOTE | 2018-11-22 06:06 | NUR ---
SHIFT SUMMARY NO ACUTE CHANGES THIS EVENING. PT'S SCROTUM DOES NOT APPEAR TO HAVE DECREASED IN SWELLING BUT PT REPORTS THAT HE FEELS IT IS SMALLER THAN ON ADMISSION. SCROTUM IS RED AND REMAINS APPROX BASEBALL SIZE. PAINFUL, ESPECIALLY W/ MOVEMENT. MEDICATED X 2 W/ 1 TAB NORCO. PILLOWS PLACED BETWEEN LEGS FOR COMFORT. PT SLEPT THROUGH MOST OF THE NIGHT. PLEASANT AND COOPERATIVE. VSS. EDUARDO REMAINS IN PLACE, DRAINING YELLOW URINE. PT RESTING IN BED AT THIS TIME. WILL CONTINUE TO MONITOR.
[2018-11-22 09:30] LABS: Vancomycin, Random 17.9 ug/mL
[2018-11-22 16:41] LABS: Bun/Creatinine Ratio 19.5 (12.0-20.0); Calcium, Blood 8.6 mg/dL (8.5-10.1); Creatinine, Blood 2.31 mg/dL (0.60-1.20); Potassium, Blood 4.6 mmol/L (3.5-5.5)
--- NOTE | 2018-11-22 17:17 | NUR ---
SHIFT SUMMARY PT IS ALERT AND ORIENTED AND COOPERATIVE WITH CARE. PT HAS AN INDWELLING CATHETER FOR RETENTION. PT COMPLAINS OF PAIN IN THE SCROTUM, WHICH IS SWOLLEN AND REDDENED. 20 GAUGE IV IN RIGHT AC INFUSING NS 50 ML/H TKO. NO ACUTE CHANGES THIS SHIFT. WILL CONTINUE TO MONITOR PATIENT.
--- NOTE | 2018-11-23 07:21 | NUR ---
SHIFT SUMMARY PT HAD SOME DISCOMFORT EARLY IN THE SHIFT. PT TX PER EMAR. PT WAS ABLE TO GET SOME SLEEP. PT HAD NO ACUTE ISSUES NOTED. PT IS BREATHING EASY AND RESTING. PT IS VERY [place]. CALL LIGHT IN REACH.
[2018-11-23 08:57] LABS: BASOPHILS ABSOLUTE AUTO 0.01 K/mm3 (0.00-0.23); BASOPHILS PERCENT AUTO 0 % (0-2); EOSINOPHILS ABSOLUTE AUTO 0.13 K/mm3 (0.00-0.68); EOSINOPHILS PERCENT AUTO 2 % (0-6); Hemoglobin 10.8 g/dL (13.5-17.5); IMMATURE GRAN ABSOLUTE AUTO 0.04 K/mm3 (0.00-0.10); IMMATURE GRAN PERCENT AUTO 1 % (0-1); LYMPHOCYTES ABSOLUTE AUTO 0.92 K/mm3 (0.84-5.20); LYMPHOCYTES PERCENT AUTO 12 % (21-46); MONOCYTES ABSOLUTE AUTO 0.83 K/mm3 (0.16-1.47); MONOCYTES PERCENT AUTO 11 % (4-13); Mean Corpuscular HGB 26.9 pg (26.0-34.0); Mean Corpuscular HGB Conc 31.8 g/dL (31.5-36.5); Mean Corpuscular Volume 85 fL (80-100); Mean Platelet Volume 8.8 fL (9.1-12.4); NEUTROPHILS ABSOLUTE AUTO 5.55 K/mm3 (1.96-9.15); NEUTROPHILS PERCENT AUTO 74 % (41-73); Platelet Count 116 K/mm3 (150-400); RDW Coefficient Variation 14.6 % (11.7-14.2); RDW Standard Deviation 45.2 fL (35.1-46.3); Red Blood Cell Count 4.02 M/mm3 (4.30-5.90); White Blood Cell Count 7.48 K/mm3 (4.00-11.30)
[2018-11-23 09:11] LABS: International Normalized Ratio 3.41; Prothrombin Time Results 32.8 Sec (9.7-11.5)
[2018-11-23 09:30] LABS: Vancomycin, Trough 25.3 ug/mL (5.0-10.0)
[2018-11-23 09:32] LABS: Alanine Aminotransfer (ALT/SGP 22 U/L (12-78); Albumin, Blood 2.6 g/dL (3.4-5.0); Albumin/Globulin Ratio 0.7 (0.8-1.8); Alk Phos 130 U/L (50-136); Anion Gap 5 mmol/L (6-16); Aspartate Aminotrans (AST/SGOT 37 U/L (12-37); Bilirubin, Total 0.4 mg/dL (0.1-1.0); Blood Urea Nitrogen 41 mg/dL (8-24); Bun/Creatinine Ratio 18.8 (12.0-20.0); CO2, Blood 25 mmol/L (21-32); CPK Creatine Kinase 70 U/L (39-308); Calcium, Blood 8.1 mg/dL (8.5-10.1); Chloride, Blood 110 mmol/L (98-108); Creatinine, Blood 2.18 mg/dL (0.60-1.20); Globulin, Blood 3.8 g/dL (2.2-4.0); Glomerular Filtration Rate 31 (60-); Glucose, Blood 94 mg/dL (70-99); Phosphorus, Blood 2.5 mg/dL (2.5-4.9); Sodium, Blood 140 mmol/L (136-145); Total Protein, Blood 6.4 g/dL (6.4-8.2)
--- NOTE | 2018-11-23 17:38 | NUR ---
PT IN AND OUT OF BED TRYING TO MANAGE SCROTAL PAIN ALL DAY. PT AO X4 AND STATES HE IS FEELING A BIT BETTER TODAY. NEW URINAL BAG APPLIED FOR URINE SAMPLE. PT RESTING IN BED AT THIS TIME RECIEVING IV ANTIBOTICS NO DISTRESS NOTED.
[2018-11-24 04:02] LABS: Microalb/Creat Ratio UR, Rand 659.124 mg/g (0.000-30.000)
[2018-11-24 05:08] LABS: BASOPHILS ABSOLUTE AUTO 0.02 K/mm3 (0.00-0.23); BASOPHILS PERCENT AUTO 0 % (0-2); EOSINOPHILS ABSOLUTE AUTO 0.12 K/mm3 (0.00-0.68); EOSINOPHILS PERCENT AUTO 1 % (0-6); Hematocrit 31.4 % (37.0-53.0); Hemoglobin 9.9 g/dL (13.5-17.5); IMMATURE GRAN ABSOLUTE AUTO 0.05 K/mm3 (0.00-0.10); IMMATURE GRAN PERCENT AUTO 1 % (0-1); LYMPHOCYTES ABSOLUTE AUTO 0.94 K/mm3 (0.84-5.20); LYMPHOCYTES PERCENT AUTO 11 % (21-46); MONOCYTES ABSOLUTE AUTO 1.11 K/mm3 (0.16-1.47); MONOCYTES PERCENT AUTO 13 % (4-13); Mean Corpuscular HGB 26.7 pg (26.0-34.0); Mean Corpuscular HGB Conc 31.5 g/dL (31.5-36.5); Mean Corpuscular Volume 85 fL (80-100); Mean Platelet Volume 8.6 fL (9.1-12.4); NEUTROPHILS ABSOLUTE AUTO 6.56 K/mm3 (1.96-9.15); NEUTROPHILS PERCENT AUTO 75 % (41-73); Platelet Count 104 K/mm3 (150-400); RDW Coefficient Variation 14.6 % (11.7-14.2); RDW Standard Deviation 45.2 fL (35.1-46.3); Red Blood Cell Count 3.71 M/mm3 (4.30-5.90)
[2018-11-24 05:21] LABS: International Normalized Ratio 3.81; Prothrombin Time Results 36.4 Sec (9.7-11.5)
[2018-11-24 05:30] LABS: Albumin, Blood 2.4 g/dL (3.4-5.0); Anion Gap 8 mmol/L (6-16); Blood Urea Nitrogen 38 mg/dL (8-24); Bun/Creatinine Ratio 18.7 (12.0-20.0); CO2, Blood 24 mmol/L (21-32); Calcium, Blood 7.9 mg/dL (8.5-10.1); Chloride, Blood 108 mmol/L (98-108); Creatinine, Blood 2.03 mg/dL (0.60-1.20); Glomerular Filtration Rate 34 (60-); Glucose, Blood 113 mg/dL (70-99); Phosphorus, Blood 2.2 mg/dL (2.5-4.9); Potassium, Blood 4.2 mmol/L (3.5-5.5); Sodium, Blood 140 mmol/L (136-145)
--- NOTE | 2018-11-24 06:16 | NUR ---
SHIFT SUMMARY PT HAD A BETTER SHIFT TONIGHT. PT WAS ABLE TO GET COMFORTABLE AND SLEEP. PT IS EAGER TO GET BETTER. PT DISCOMFORT TX PER EMAR WITH GOOD RESPONSE. PT HAS BEEN ABLE TO SLEEP THROUGHOUT SHIFT. PT HAD NO ACUTE ISSUES NOTED. PT IS SLEEPING AND BREATHING EASY.
--- NOTE | 2018-11-24 13:31 | NUR ---
PATIENT ALERT AND ORIENTED. COOPERATIVE. PLEASANT. KNOWS HOW TO USE CALL LIGHT. SCROTUM RED, SWOLLEN AND PER PATIENT "APPEARS NOT SWOLLEN". MEDICATED FOR PAIN, ALSO STANDS TO CONTROL PAIN. SOMETIMES APPEARS CONFUSED, BUT THINK ITS BECAUSE HE IS [place] AND IS EASILY REDIRECTABLE AND ORIENTED. WILL CONTINUE TO MONITOR.
--- NOTE | 2018-11-24 15:10 | NUR ---
MEDICATED LITTLE AFTER 2PM FOR PAIN. SLEEPING APPEARS COMFORTABLE.
--- NOTE | 2018-11-24 17:49 | NUR ---
ALERT, ORIENTED. HAD SHOWER AND STS FEELS MUCH BETTER. NO ACUTE CHANGES. IV INFUSING. WILL CONTINUE TO MONITOR.
[2018-11-25 05:03] LABS: BASOPHILS ABSOLUTE AUTO 0.02 K/mm3 (0.00-0.23); BASOPHILS PERCENT AUTO 0 % (0-2); EOSINOPHILS ABSOLUTE AUTO 0.16 K/mm3 (0.00-0.68); EOSINOPHILS PERCENT AUTO 2 % (0-6); Hematocrit 32.1 % (37.0-53.0); Hemoglobin 10.2 g/dL (13.5-17.5); IMMATURE GRAN ABSOLUTE AUTO 0.04 K/mm3 (0.00-0.10); IMMATURE GRAN PERCENT AUTO 1 % (0-1); LYMPHOCYTES ABSOLUTE AUTO 1.49 K/mm3 (0.84-5.20); LYMPHOCYTES PERCENT AUTO 18 % (21-46); MONOCYTES ABSOLUTE AUTO 0.84 K/mm3 (0.16-1.47); MONOCYTES PERCENT AUTO 10 % (4-13); Mean Corpuscular HGB 27.1 pg (26.0-34.0); Mean Corpuscular HGB Conc 31.8 g/dL (31.5-36.5); Mean Corpuscular Volume 85 fL (80-100); Mean Platelet Volume 8.6 fL (9.1-12.4); NEUTROPHILS ABSOLUTE AUTO 5.75 K/mm3 (1.96-9.15); NEUTROPHILS PERCENT AUTO 69 % (41-73); Platelet Count 120 K/mm3 (150-400); RDW Coefficient Variation 14.8 % (11.7-14.2); RDW Standard Deviation 46.6 fL (35.1-46.3); Red Blood Cell Count 3.76 M/mm3 (4.30-5.90)
[2018-11-25 05:17] LABS: International Normalized Ratio 3.67; Prothrombin Time Results 35.1 Sec (9.7-11.5)
[2018-11-25 05:38] LABS: Albumin, Blood 2.6 g/dL (3.4-5.0); Anion Gap 8 mmol/L (6-16); Blood Urea Nitrogen 34 mg/dL (8-24); Bun/Creatinine Ratio 16.9 (12.0-20.0); CO2, Blood 24 mmol/L (21-32); Chloride, Blood 108 mmol/L (98-108); Creatinine, Blood 2.01 mg/dL (0.60-1.20); Glomerular Filtration Rate 34 (60-); Glucose, Blood 117 mg/dL (70-99); Phosphorus, Blood 2.9 mg/dL (2.5-4.9); Potassium, Blood 4.2 mmol/L (3.5-5.5); Sodium, Blood 140 mmol/L (136-145)
--- NOTE | 2018-11-25 07:26 | NUR ---
SHIFT SUMMARY PT HAD A GOOD SHIFT. PT RESTED AND WAS UP BEAT AT TIMES. PT DISCOMFORT WAS MANAGED PER EMAR. PT HAD NO ACUTE ISSUES NOTED. PT DID SLEEP WELL AT TIMES. PT IS BREATHING EASY AND CALL LIGHT IN REACH .
--- NOTE | 2018-11-25 16:22 | NUR ---
SHIFT SUMMARY NO ACUTE CHANGES. PATIENT MEDICATED FOR PAIN X 2 THIS SHIFT AND X 1 FOR NAUSEA. PATIENT UP IN CHAIR FOR PART OF DAY. DR. MCKEON CONSULTED ON PATIENT TODAY. PATIENT HAS HAD MORE FREQUENT EPISODES OF CONFUSION THIS AFTERNOON. CALL LIGHT IN REACH, WILL CONTINUE TO MONITOR.
--- NOTE | 2018-11-26 04:57 | NUR ---
VSS, AFEBRILE, A/O BUT CONFUSED AT TIMES, BED ALARM FOR IMPULSIVENESS, 20G R AC IS POSITIONAL, NUNAM IQUA, NS @ 50 ML/HR, IVABX, EDUARDO, CBG ACHS. PMHX: A-FIB. SLEPT WELL OVER NOC.
[2018-11-26 05:09] LABS: BASOPHILS ABSOLUTE AUTO 0.03 K/mm3 (0.00-0.23); BASOPHILS PERCENT AUTO 0 % (0-2); EOSINOPHILS ABSOLUTE AUTO 0.13 K/mm3 (0.00-0.68); EOSINOPHILS PERCENT AUTO 2 % (0-6); Hematocrit 29.8 % (37.0-53.0); Hemoglobin 9.6 g/dL (13.5-17.5); IMMATURE GRAN ABSOLUTE AUTO 0.04 K/mm3 (0.00-0.10); IMMATURE GRAN PERCENT AUTO 1 % (0-1); LYMPHOCYTES ABSOLUTE AUTO 0.89 K/mm3 (0.84-5.20); LYMPHOCYTES PERCENT AUTO 11 % (21-46); MONOCYTES ABSOLUTE AUTO 0.81 K/mm3 (0.16-1.47); MONOCYTES PERCENT AUTO 10 % (4-13); Mean Corpuscular HGB 27.2 pg (26.0-34.0); Mean Corpuscular HGB Conc 32.2 g/dL (31.5-36.5); Mean Corpuscular Volume 84 fL (80-100); Mean Platelet Volume 9.1 fL (9.1-12.4); NEUTROPHILS ABSOLUTE AUTO 6.42 K/mm3 (1.96-9.15); NEUTROPHILS PERCENT AUTO 77 % (41-73); Platelet Count 115 K/mm3 (150-400); RDW Standard Deviation 45.9 fL (35.1-46.3); Red Blood Cell Count 3.53 M/mm3 (4.30-5.90); White Blood Cell Count 8.32 K/mm3 (4.00-11.30)
[2018-11-26 05:28] LABS: International Normalized Ratio 3.52; Prothrombin Time Results 33.8 Sec (9.7-11.5)
[2018-11-26 05:32] LABS: Magnesium, Blood 2.2 mg/dL (1.6-2.4)
[2018-11-26 05:37] LABS: Albumin, Blood 2.4 g/dL (3.4-5.0); Anion Gap 8 mmol/L (6-16); Blood Urea Nitrogen 31 mg/dL (8-24); Bun/Creatinine Ratio 16.7 (12.0-20.0); CO2, Blood 22 mmol/L (21-32); Calcium, Blood 7.6 mg/dL (8.5-10.1); Chloride, Blood 111 mmol/L (98-108); Creatinine, Blood 1.86 mg/dL (0.60-1.20); Glomerular Filtration Rate 37 (60-); Glucose, Blood 140 mg/dL (70-99); Phosphorus, Blood 2.6 mg/dL (2.5-4.9); Potassium, Blood 4.7 mmol/L (3.5-5.5); Sodium, Blood 141 mmol/L (136-145)
--- NOTE | 2018-11-26 17:32 | NUR ---
SHIFT SUMMARY NO ACUTE CHANGES. PATIENT MEDICATED FOR PAIN X 1 TODAY. JAYCE HAWKINS. PATIENT WORKED WITH PT, AMBULATE SBA IN HALLWAY RECOMMENDED. PATIENT REPORTS HE IS FEELING BETTER BUT STILL IN PAIN. CALL LIGHT IN REACH, WILL CONTINUE TO MONITOR.
--- NOTE | 2018-11-27 05:09 | NUR ---
VSS, AFEBRILE, A/O BUT INCREASING CONFUSION OVER NOC. FREQ TRIPS TO THE BR TO URINATE, BISHOP PAIUTE, 22G R AC, MORE FREQ REQUESTS FOR PAIN MEDS, CBG ACHS, CAN BE VERY RESTLESS AT TIMES, YELLS AT THE STAFF. NS @ 50 ML/HR, MAY NEED PLACEMENT.
[2018-11-27 05:33] LABS: Hematocrit 31.9 % (37.0-53.0); Hemoglobin 10.1 g/dL (13.5-17.5)
[2018-11-27 05:47] LABS: International Normalized Ratio 2.95; Prothrombin Time Results 28.6 Sec (9.7-11.5)
[2018-11-27 05:58] LABS: Albumin, Blood 2.6 g/dL (3.4-5.0); Anion Gap 8 mmol/L (6-16); Blood Urea Nitrogen 34 mg/dL (8-24); Bun/Creatinine Ratio 16.5 (12.0-20.0); CO2, Blood 23 mmol/L (21-32); Calcium, Blood 7.9 mg/dL (8.5-10.1); Chloride, Blood 109 mmol/L (98-108); Creatinine, Blood 2.06 mg/dL (0.60-1.20); Glomerular Filtration Rate 33 (60-); Glucose, Blood 178 mg/dL (70-99); Magnesium, Blood 2.2 mg/dL (1.6-2.4); Phosphorus, Blood 2.1 mg/dL (2.5-4.9); Potassium, Blood 4.3 mmol/L (3.5-5.5); Sodium, Blood 140 mmol/L (136-145)
--- NOTE | 2018-11-27 12:45 | NUR ---
PT ANXIETY PT EXPERIENCED AN INCREASE IN ANXIETY AT 1100. PT WOKE UP FROM NAP FEELING LIKE HE CANT BREATH. O2 SATS IN THE UPPER 90S. OTHER VITALS STABLE. BLADDER SCAN WAS COMPLETED. 57CC POST VOID. DR. YAO NOTIFIED AND ORDERED XANAX FOR THE PT. PT STATES HE THINS HE IS HAVING AN ANXIETY ATTACK. PT GIVEN XANAX. WILL CONTINUE TO MONITOR PT ANXIETY.
--- NOTE | 2018-11-27 15:18 | NUR ---
PT LETHARGIC PT HAS BECOME LETHARGIC. PT CONTINUES TO FALL ASLEEP DURING CONVERSATION. PT IS AWARE OF HIS LOCATION AND SITTUATION HOWEVER. PT GOT UP TO THE BATHROOM & WAS WOBBLY WHEN WALKING. EARLIER THIS MORNING HE DID THIS ON HIS OWN EASILY. PT PLACED BACK IN BED. PT HAD VISUAL HALLUCINATIONS WITH OCCUAPTIONAL THERAPY STATING HE SAY A DOG UNDER THE BED. WILL CONTIUNUE TO MONITOR PT CONDITION.
--- NOTE | 2018-11-27 17:13 | NUR ---
SHIFT SUMMARY PT CONTINUES TO BE LETHARGIC. PT AWAKES WITH TOUCH, BUT FALLS ASLEEP QUICKLY WITHOUT STIMULATION. VITALS STABLE. PT ONLY ATE A SMALL AMOUT AT BREAKFAST. SINCE THE XANAX WAS GIVEN FOR ANXIETY THE PT HAS BEEN TOO SLEEPY TO MAGALYS. WEHN PT AWAKES, SNACKS WILL BE OFFERED. PT CONTINUES TO BE ALERT & ORIENTED WHEN AWOKE. NO OTHER HALLUCINATIONS OR CONFUSION NOTED SINCE HIS TIME WITH OCCUPATIONAL THERAPY. NO OTHER CHANGES IN ASSESSMENT AT THIS TIME. PT MEDICATED FOR PAIN ONCE THIS SHIFT. PT CURRENTLY SLEEPING IN BED. CALL LIGHT IN REACH. WILL CONTINUE TO MONITOR UNTIL TURNOVER IS COMPLETE.
--- NOTE | 2018-11-27 22:38 | NUR ---
PATIENT SLOWLY MORE ALERT. UP TO BR WITH ONE ASSIST. KNOWS YEAR, FOLLOWING DIRECTION AND TALKED TO ASKING REORIENTATION QUESTIONS. DOES NOT KNOW HE IS IN HOSPITAL THINKING IT WAS A MOT[place]. PATIENT ORIENTED BACK TO PLACE AND STAFF. KNOW HE HAS PAIN BUT HAS TO THINK WHAT THE PAIN LEVEL IS. BACK INTO BED WITH BED ALARM ACTIVATED.
--- NOTE | 2018-11-27 23:11 | NUR ---
PATIENT NOW KNOWS HE IS IN THE HOSPITAL AND LIVES IN [place]. HE KNOWS HIS 'S PHONE NUMBER. PATIENT IS ABLE TO DO A PAIN ASSESSMENT NUMBER AND LOCATION OF PAIN. STILL ONE ASSIST TO BR; ESSIEAKEY WITH FWW. MINIMAL SECOND VOID.
--- NOTE | 2018-11-28 04:44 | NUR ---
SHIFT SUMMARY PATIENT MENTATION HAS IMPROVED THIS SHIFT. ALERT NOW TO PERSON, PLACE, FOLLOWING DIRECTIONS. ABLE TO REMEMBER SPOUSE PHONE NUMBER AND CALL HER FOR ADDITIONAL REORIENTATION QUESTIONS. PATIENT THOUGHT HE WAS IN [place] AT START OF SHIFT. SBA TO BATHROOM. BREVIG [place]. PIV REMAINS INTACT. NS INFUSING AT 75mL/HR. IV ABX INFUSED. SCROTUM PAIN MANAGE WITH NORCO AND FENTANYL. PATIENT NOW ABLE TO DO PAIN ASSESSMENTS. VSS/AFEBRILE. CALL LIGHT IN REACH. BED IN LOWEST POSITION. WILL CONTINUE TO MONITOR UNTIL DAY SHIFT NURSE ASSUMES CARE.
[2018-11-28 06:05] LABS: BASOPHILS ABSOLUTE AUTO 0.02 K/mm3 (0.00-0.23); BASOPHILS PERCENT AUTO 0 % (0-2); EOSINOPHILS ABSOLUTE AUTO 0.15 K/mm3 (0.00-0.68); EOSINOPHILS PERCENT AUTO 2 % (0-6); Hematocrit 30.5 % (37.0-53.0); Hemoglobin 9.4 g/dL (13.5-17.5); IMMATURE GRAN ABSOLUTE AUTO 0.05 K/mm3 (0.00-0.10); IMMATURE GRAN PERCENT AUTO 1 % (0-1); LYMPHOCYTES ABSOLUTE AUTO 0.99 K/mm3 (0.84-5.20); LYMPHOCYTES PERCENT AUTO 12 % (21-46); MONOCYTES ABSOLUTE AUTO 0.87 K/mm3 (0.16-1.47); MONOCYTES PERCENT AUTO 10 % (4-13); Mean Corpuscular HGB 26.5 pg (26.0-34.0); Mean Corpuscular HGB Conc 30.8 g/dL (31.5-36.5); Mean Corpuscular Volume 86 fL (80-100); Mean Platelet Volume 8.9 fL (9.1-12.4); NEUTROPHILS ABSOLUTE AUTO 6.51 K/mm3 (1.96-9.15); NEUTROPHILS PERCENT AUTO 76 % (41-73); Platelet Count 158 K/mm3 (150-400); RDW Coefficient Variation 15.3 % (11.7-14.2); RDW Standard Deviation 49.1 fL (35.1-46.3); Red Blood Cell Count 3.55 M/mm3 (4.30-5.90); White Blood Cell Count 8.59 K/mm3 (4.00-11.30)
[2018-11-28 06:16] LABS: International Normalized Ratio 3.59; Prothrombin Time Results 34.4 Sec (9.7-11.5)
[2018-11-28 06:27] LABS: Albumin, Blood 2.3 g/dL (3.4-5.0); Anion Gap 7 mmol/L (6-16); Blood Urea Nitrogen 29 mg/dL (8-24); Bun/Creatinine Ratio 15.2 (12.0-20.0); CO2, Blood 22 mmol/L (21-32); Calcium, Blood 7.6 mg/dL (8.5-10.1); Chloride, Blood 110 mmol/L (98-108); Creatinine, Blood 1.91 mg/dL (0.60-1.20); Glomerular Filtration Rate 36 (60-); Glucose, Blood 142 mg/dL (70-99); Magnesium, Blood 2.1 mg/dL (1.6-2.4); Phosphorus, Blood 2.2 mg/dL (2.5-4.9); Potassium, Blood 4.5 mmol/L (3.5-5.5); Sodium, Blood 139 mmol/L (136-145)
--- NOTE | 2018-11-28 14:14 | NUR ---
OT RECCOMMENDATION OTRAFIQ, SPOKE WITH NURSE ABOUT THE RECCOMMENDATION FOR THE PT TO CONTINUE OCCUPATIONAL THERAPY IN AN OUTPATIENT SETTING.
--- NOTE | 2018-11-28 16:43 | NUR ---
SHIFT SUMMARY PT HAS BEEN SLEEPY TODAY. PT TALKED TO ON THE PHONE ABOUT HOW THE HAS BEEN SICK ALL WEEK. PT STATED HE IS WORRIED ABOUT GOING HOME IF HIS IS SICK. ARON QUIROZ DC LEGAL ASSOCIATE MET WITH PT ABOUT THIS. RICHIE TO DISCUSS THIS WITH . PT HAS NEEDED HELP GETTING OUT OF BED, BUT AMBULATES WELL ONCE HE IS UP. PT HAS SHOWN SIGNS OF DISORIENTATION ON AND OFF THROUGHOUT THE SHIFT. PT FORGOT THAT HIS MORNING MEDS WERE GIVEN TO HIM AND ASKED FOR THEM THIS AFTERNOON. NO OTHER CHANGES IN ASSESSMENT AT THIS TIME. VSS. WILL CONTINUE TO MONITOR. PT UNTIL TURNOVER IS COMPLETE.
--- NOTE | 2018-11-29 04:19 | NUR ---
SHIFT SUMMARY PATIENT HAD NO ACUTE CHANGES OBSERVED THIS SHIFT. AXOX 3 WITH CONFUSION AT TIMES. PATIENT HAS MOMENTS OF ANXIETY THAT RESIDE IN A FEW MINUTES. HE REPORTS ANXIETY IS NEW FOR HIM. TAKES MEDS WHOLE WITH WATER. LITTLE TRAVERSE. PIV REMAINS INTACT. NS INFUSING AT 75mL/HR. IV ABX INFUSED. PATIENT REPORTS MINIMAL SCROTUM PAIN THIS SHIFT. STILL HAVING MINIMAL VOIDS AVERAGING 100mL/VOID. CBG 165. CALL LIGHT IN REACH. BED IN LOWEST POSITION. WILL CONTINUE TO MONITOR UNTIL DAY SHIFT NURSE ASSUMES CARE.
[2018-11-29 05:00] LABS: Hematocrit 29.4 % (37.0-53.0); Hemoglobin 9.3 g/dL (13.5-17.5)
[2018-11-29 05:14] LABS: International Normalized Ratio 3.9; Prothrombin Time Results 36.5 Sec (9.7-11.5)
[2018-11-29 05:28] LABS: Albumin, Blood 2.5 g/dL (3.4-5.0); Anion Gap 6 mmol/L (6-16); Blood Urea Nitrogen 28 mg/dL (8-24); Bun/Creatinine Ratio 14.7 (12.0-20.0); CO2, Blood 23 mmol/L (21-32); Calcium, Blood 7.7 mg/dL (8.5-10.1); Chloride, Blood 112 mmol/L (98-108); Glomerular Filtration Rate 37 (60-); Glucose, Blood 119 mg/dL (70-99); Magnesium, Blood 2.1 mg/dL (1.6-2.4); Phosphorus, Blood 2.2 mg/dL (2.5-4.9); Potassium, Blood 4.8 mmol/L (3.5-5.5); Sodium, Blood 141 mmol/L (136-145)
--- NOTE | 2018-11-29 15:44 | NUR ---
PT VISIBLY BLEEDING FROM RECTUM. DR INFORMED. COUMADIN CONSULT DISCONTINUED PER . LABS WILL BE DRAWN AGAIN IN AM TO CHECK INR
--- NOTE | 2018-11-29 16:29 | NUR ---
PT COUMADIN STOPPED PER DR DUE TO ACTIVE RECTAL BLEEDING. LABS AGAIN IN THE MORNING.PT C/O ANXIETY MEDICATED WITH XANAX, TOLERATED WELL TODAY NO SIGNS OF LETHARGY. C/O PAIN X1 THIS SHIFT. UP TO BATHROOM WITH FWW MINIMAL ASSIST. VERY HEARD OF HEARING. PLANS TO GO HOME TOMM.
--- NOTE | 2018-11-29 23:24 | NUR ---
ANXIETY PT WAKES UP, C/O OF SOB AND HYPERVENTILATING. PT OFFERED PO XANAX AFTER THERAPEUTIC COMMUNICATION INEFFECTIVE. PO XANAX ADMINISTERED. 2L VIA VIA NC PLACED TO RELIEVE SOB. VSS. WILL CONT TO MONITOR.
[2018-11-30 05:03] LABS: BASOPHILS ABSOLUTE AUTO 0.03 K/mm3 (0.00-0.23); BASOPHILS PERCENT AUTO 0 % (0-2); EOSINOPHILS ABSOLUTE AUTO 0.13 K/mm3 (0.00-0.68); EOSINOPHILS PERCENT AUTO 2 % (0-6); Hematocrit 29.3 % (37.0-53.0); Hemoglobin 9.1 g/dL (13.5-17.5); IMMATURE GRAN ABSOLUTE AUTO 0.03 K/mm3 (0.00-0.10); IMMATURE GRAN PERCENT AUTO 0 % (0-1); LYMPHOCYTES ABSOLUTE AUTO 1.08 K/mm3 (0.84-5.20); LYMPHOCYTES PERCENT AUTO 14 % (21-46); MONOCYTES ABSOLUTE AUTO 0.71 K/mm3 (0.16-1.47); MONOCYTES PERCENT AUTO 9 % (4-13); Mean Corpuscular HGB 26.8 pg (26.0-34.0); Mean Corpuscular HGB Conc 31.1 g/dL (31.5-36.5); Mean Corpuscular Volume 86 fL (80-100); Mean Platelet Volume 8.7 fL (9.1-12.4); NEUTROPHILS ABSOLUTE AUTO 5.81 K/mm3 (1.96-9.15); NEUTROPHILS PERCENT AUTO 75 % (41-73); Platelet Count 198 K/mm3 (150-400); RDW Coefficient Variation 15.8 % (11.7-14.2); RDW Standard Deviation 49.3 fL (35.1-46.3); Red Blood Cell Count 3.39 M/mm3 (4.30-5.90); White Blood Cell Count 7.79 K/mm3 (4.00-11.30)
[2018-11-30 05:26] LABS: International Normalized Ratio 3.77; Prothrombin Time Results 35.4 Sec (9.7-11.5)
[2018-11-30 05:28] LABS: Alanine Aminotransfer (ALT/SGP 20 U/L (12-78); Albumin, Blood 2.3 g/dL (3.4-5.0); Albumin/Globulin Ratio 0.6 (0.8-1.8); Alk Phos 136 U/L (50-136); Anion Gap 9 mmol/L (6-16); Aspartate Aminotrans (AST/SGOT 21 U/L (12-37); Bilirubin, Total 0.4 mg/dL (0.1-1.0); Blood Urea Nitrogen 26 mg/dL (8-24); Bun/Creatinine Ratio 14.3 (12.0-20.0); CO2, Blood 21 mmol/L (21-32); Calcium, Blood 7.6 mg/dL (8.5-10.1); Chloride, Blood 113 mmol/L (98-108); Creatinine, Blood 1.82 mg/dL (0.60-1.20); Globulin, Blood 3.6 g/dL (2.2-4.0); Glomerular Filtration Rate 38 (60-); Glucose, Blood 107 mg/dL (70-99); Phosphorus, Blood 2.7 mg/dL (2.5-4.9); Potassium, Blood 4.5 mmol/L (3.5-5.5); Sodium, Blood 143 mmol/L (136-145); Total Protein, Blood 5.9 g/dL (6.4-8.2)
[2018-11-30 05:37] LABS: Magnesium, Blood 2.2 mg/dL (1.6-2.4)
--- NOTE | 2018-11-30 06:31 | NUR ---
SHIFT SUMMARY: PT BECAME VERY ANXIOUS LAST NIGHT, BUT WAS RELIEVED c PRN XANAX, SEE PRIOR NOTE. BT HAS ONE VERY SMALL BM, NO BLOOD NOTED AND NO BLEEDING FROM RECTUM THIS SHIFT. H/H FROM THIS AM LABS SLIGHTLY LOW AT 9.1/29.3. CBG @ 151 THIS SHIFT; NO COV INDICATED. SCROTUM RED + SWOLLEN, MEPILEX ON COCCYX. NS RUNNING @ 75 ML/HR. NO OTHER ACUTE CHANGES TO REPORT. WILL CONT TO MONITOR AND PROVIDE CARE UNTIL PRESUMED BY ONCOMING RN.
--- NOTE | 2018-11-30 17:09 | NUR ---
NS STOPPED. PT SEEMS TO BE RETAINING FLUIDS. DR PANDYA ORDERED LASIX FOR PT DAILY. FETANLY D/C DUE TO LETHARGY. OXY AVAILABLE WHEN NEEDED. C/O DIFFICULTY BREATHING, PT ENCOURAGED TO SIT UP IN BED. PT C/O PAIN, MEDICATED PER EMAR. SWELLING SEEMS THE SAME YESTERDAY ON SCROTUM, MEDICATED WITH ANTIBIOTICS. CURRENTLY PT IS IN NO PAIN. 1 PRSN ASSIST TO BATHRM W/ FWW. CALL LIGHT IN REACH
--- NOTE | 2018-11-30 18:50 | NUR ---
assumed care from Wilber estrada , from 1799 to 1914, pt up ind in his room to the bathroom, call light in reach
[2018-12-01 05:19] LABS: BASOPHILS ABSOLUTE AUTO 0.03 K/mm3 (0.00-0.23); BASOPHILS PERCENT AUTO 0 % (0-2); EOSINOPHILS ABSOLUTE AUTO 0.17 K/mm3 (0.00-0.68); EOSINOPHILS PERCENT AUTO 2 % (0-6); Hematocrit 31.8 % (37.0-53.0); Hemoglobin 10.1 g/dL (13.5-17.5); IMMATURE GRAN ABSOLUTE AUTO 0.06 K/mm3 (0.00-0.10); IMMATURE GRAN PERCENT AUTO 1 % (0-1); LYMPHOCYTES PERCENT AUTO 12 % (21-46); MONOCYTES ABSOLUTE AUTO 0.88 K/mm3 (0.16-1.47); MONOCYTES PERCENT AUTO 9 % (4-13); Mean Corpuscular HGB 27.7 pg (26.0-34.0); Mean Corpuscular HGB Conc 31.8 g/dL (31.5-36.5); Mean Corpuscular Volume 87 fL (80-100); Mean Platelet Volume 8.2 fL (9.1-12.4); NEUTROPHILS ABSOLUTE AUTO 7.66 K/mm3 (1.96-9.15); NEUTROPHILS PERCENT AUTO 77 % (41-73); Platelet Count 260 K/mm3 (150-400); RDW Standard Deviation 50.4 fL (35.1-46.3); Red Blood Cell Count 3.65 M/mm3 (4.30-5.90)
[2018-12-01 05:36] LABS: International Normalized Ratio 3.69; Prothrombin Time Results 34.7 Sec (9.7-11.5)
[2018-12-01 06:01] LABS: Albumin, Blood 2.7 g/dL (3.4-5.0); Anion Gap 11 mmol/L (6-16); Blood Urea Nitrogen 23 mg/dL (8-24); Bun/Creatinine Ratio 11.9 (12.0-20.0); CO2, Blood 22 mmol/L (21-32); Calcium, Blood 8.2 mg/dL (8.5-10.1); Chloride, Blood 111 mmol/L (98-108); Creatinine, Blood 1.94 mg/dL (0.60-1.20); Glomerular Filtration Rate 36 (60-); Glucose, Blood 123 mg/dL (70-99); Magnesium, Blood 2.1 mg/dL (1.6-2.4); Phosphorus, Blood 2.7 mg/dL (2.5-4.9); Potassium, Blood 4.1 mmol/L (3.5-5.5); Sodium, Blood 144 mmol/L (136-145)
--- NOTE | 2018-12-01 07:17 | NUR ---
SHIFT SUMMARY: PT MORE LETHARGIC, WEAK TODAY. PT HAD FALL AMBULATING BACK FROM BATHROOM; FAILURE TO USE CALL LIGHT BEFORE RISING FROM TOILET. PT NOW 2 PER MAX ASSIST AND NOT TO BE LEFT ALONE IN BATHROOM. ASSESSED PT AFTER FALL; SMALL SCRAPE ON R KNEE. NO OTHER ASSESSMENT CHANGES. PT TREATED 2X FOR ANXIETY c PRN XANAX. NO PAIN, DENIES SOB. TOLERATES ROOM AIR. NO OTHER ACUTE CHANGES TO REPORT
--- NOTE | 2018-12-01 12:16 | NUR ---
PT HAS HAD URGENCY AND FREQUENCY WITH VERY LITTLE OUTPUT THIS AM. BLADDER SCAN OF 420. DR PANDYA NOTIFIED AND ORDERS RECEIVED FOR EDUARDO CATHETER, PSA IN AM AND FLOMAX.
[2018-12-01 12:24] LABS: Source, Urine Catheter
[2018-12-01 12:29] LABS: Appearance, Urine Hazy (Clear); Bilirubin, Urine Neg (Neg); Blood, Urine 2+ (Neg); Color, Urine Yellow (P-Yellow); Glucose Qualitative, Urine Neg (Neg); Ketones, Urine Neg (Neg); Leukocyte Esterase, Urine 1+ (Neg); Nitrite, Urine Neg (Neg); Protein, Urine 2+ (Neg); Urobilinogen, Urine NORM (Normal)
[2018-12-01 12:39] LABS: Squamous Epithelial Cells Rare /hpf (Few)
[2018-12-01 12:40] LABS: Amorphous Light (0-Heavy); Bacteria Rare /hpf; Trichomonas Few /hpf
--- NOTE | 2018-12-01 18:06 | NUR ---
SHIFT SUMMARY PT IS SLOW TO RESPOND TODAY. HE SKIPPED BREAKFAST BUT DRANK 100% OF AN ENSURE. HE SKIPPED LUNCH AND ONLY DRANK 50% OF AN ENSURE. PT IS DANGLING ON THE SIDE OF THE BED EATING DINNER, BED ALARM ON. PT WAS RETAINING URINE THIS MORNING. 42OML RESIDUAL ON THE BLADDER SCAN. A EDUARDO CATHETER WAS PLACED FOR RETENTION. THE EDUARDO IS DRAINING SUFFICIENTLY. THE PT WAS CONSULTED BY PHYSICAL THERAPY TODAY. WILL CONTINUE TO MONITOR PATIENT.
[2018-12-02 05:14] LABS: Hematocrit 29.7 % (37.0-53.0); Hemoglobin 9.5 g/dL (13.5-17.5)
[2018-12-02 05:56] LABS: Albumin, Blood 2.5 g/dL (3.4-5.0); Anion Gap 11 mmol/L (6-16); Blood Urea Nitrogen 22 mg/dL (8-24); Bun/Creatinine Ratio 11.8 (12.0-20.0); CO2, Blood 21 mmol/L (21-32); Calcium, Blood 8.3 mg/dL (8.5-10.1); Chloride, Blood 111 mmol/L (98-108); Creatinine, Blood 1.87 mg/dL (0.60-1.20); Glomerular Filtration Rate 37 (60-); Glucose, Blood 132 mg/dL (70-99); Magnesium, Blood 2.1 mg/dL (1.6-2.4); Phosphorus, Blood 2.9 mg/dL (2.5-4.9); Potassium, Blood 3.9 mmol/L (3.5-5.5); Sodium, Blood 143 mmol/L (136-145)
--- NOTE | 2018-12-02 06:28 | NUR ---
SHIFT SUMMARY: PT ANXIOUS THIS SHIFT, ASKING "HOW LONG DO I HAVE LEFT?" AND MAKING COMMENTS ABOUT DYING SOON. PT REPORTS FEELING ANXIOUS AND REQUESTS PRN XANAX. PROVIDES RELIEF. PT HAS LOOSE, FREQUENT STOOLS TODAY; DAY ONE OF THIS TYPE OF BM. DENIES ANY STOMACH PAIN OR CRAMPING. CBG @ 174. SCROTAL SWELLING NOTED; EDUARDO CATH IN PLACE. SOME D/C NOTED FROM URETHRA; CLEANED AND REASSESSED. MEPLIEX IN PLACE TO COCCYX, RED AREA. DENIES PAIN. DENIES SOB, ON RA. NO OTHER ACUTE CHANGES TO REPORT. WILL CONT TO MONITOR AND PROVIDE CARE UNTIL PRESUMED BY ONCOMING RN.
[2018-12-02 10:01] LABS: International Normalized Ratio 2.91
--- NOTE | 2018-12-02 17:30 | NUR ---
SHIFT ASSESSMENT PT LESS LETHARGIC TODAY. XANAX DC'D DUE TO THE SEDATIVE AFFECT ON THE PT. PT AMBULATED WITH AUTO BODY MAN THIS AFTERNOON. EDUARDO IN PLACE FOR RETENTION & DRAINING WELL. PT CONTINUES TO BE DIURESSED. 1000 FLUID RESTRICTION PLACED. NO OTHER CHANGES IN ASSESSMENT AT THIS TIME. VSS. PT CONTINUES TO HAVE A LITTE APPETITE. WILL CONTINUE TO MONITOR UNTIL TURNOVER IS COMPLETE.
[2018-12-03 05:10] LABS: Hematocrit 30.3 % (37.0-53.0); Hemoglobin 9.8 g/dL (13.5-17.5)
[2018-12-03 05:45] LABS: Albumin, Blood 2.5 g/dL (3.4-5.0); Anion Gap 10 mmol/L (6-16); Blood Urea Nitrogen 22 mg/dL (8-24); CO2, Blood 24 mmol/L (21-32); Calcium, Blood 8.2 mg/dL (8.5-10.1); Chloride, Blood 111 mmol/L (98-108); Glomerular Filtration Rate 34 (60-); Glucose, Blood 160 mg/dL (70-99); Magnesium, Blood 1.9 mg/dL (1.6-2.4); Phosphorus, Blood 3.1 mg/dL (2.5-4.9); Potassium, Blood 3.8 mmol/L (3.5-5.5); Sodium, Blood 145 mmol/L (136-145)
--- NOTE | 2018-12-03 07:33 | NUR ---
anxious but a+o able to talk him through the bad times, very cooprerative and appreciative for what done for him, saline locked, room air, walking rounds completed with day staff
[2018-12-03 09:57] LABS: International Normalized Ratio 2.43; Prothrombin Time Results 23.8 Sec (9.7-11.5)
[2018-12-03] MEDS ORDERED: Clotrimazole15 GM TOP (15:15)
[2018-12-03] MEDS ORDERED: FINA5 PO (15:16)
[2018-12-03] MEDS ORDERED: METO2.5 PO (15:16)
[2018-12-03] MEDS ORDERED: BUME2 PO (15:18)
[2018-12-03] MEDS ORDERED: TAMS.4ER PO (15:18)
[2018-12-03] MEDS ORDERED: LEVO750 PO (15:19)
--- NOTE | 2018-12-03 18:35 | NUR ---
PT. DISCHARGED HOME VIA TRANSPORT, WENT OVER DISCHARGE ORDERS WITH SPOUSE AND PT. EDUARDO CATHETER LEFT IN PLACE PER DR. LOWRY. SPOUSE TO MEET PT. AT HOME. HOMEHEALTH WILL CALL TOMORROW.
== END 2018-12-03 18:30 | disposition home health service (06) | DRG 727 ==
LOC: ER 11:50 → MEDS 17:25
PROVIDERS: Family Medicine; Hospitalist; Internal Medicine; Internal Medicine Nephrology; Physician Assistant; ADMIT Family Medicine
DX: N45.3 Epididymo-orchitis (principal); G92 Toxic encephalopathy; N17.9 Acute kidney failure, unspecified; E44.1 Mild protein-calorie malnutrition; N39.0 Urinary tract infection, site not specified; I42.0 Dilated cardiomyopathy; M51.36 Other intervertebral disc degeneration, lumbar region; E11.22 Type 2 diabetes mellitus with diabetic chronic kidney disease; I12.9 Hypertensive chronic kidney disease with stage 1 through stage 4 chronic kidney disease, or unspecified chronic kidney disease; N18.3 Chronic kidney disease, stage 3 (moderate); Z79.4 Long term (current) use of insulin; E78.5 Hyperlipidemia, unspecified; Z66 Do not resuscitate; N40.1 Benign prostatic hyperplasia with lower urinary tract symptoms; Z95.2 Presence of prosthetic heart valve; Z68.30 Body mass index [BMI] 30.0-30.9, adult; B37.2 Candidiasis of skin and nail; I25.5 Ischemic cardiomyopathy; T40.605A Adverse effect of unspecified narcotics, initial encounter; E83.39 Other disorders of phosphorus metabolism; F41.9 Anxiety disorder, unspecified
CPT/HCPCS: 36415; 51702; 71046; 72192; 76870; 80048; 80053; 80069; 80202; 81001; 82043; 82306; 82550; 82570; 82947; 83605; 83735; 83970; 84100; 85014; 85018; 85025; 85027; 85610; 85651; 85730; 86140; 87040; 87086; 92523; 93971; 96360; 97110; 97116; 97161; 97164; 97166; 97530; 97535; 99284-25; G0103; J1450; J1815; J1940; J2543; J3010; J3370; J7030; J7050; J7060

== ENCOUNTER 2018-12-15 13:59 | Inpatient (IN) | payer MEDICARE ==
[~2018-12-15] VITALS: Ht 162.6 cm; Wt 69.8 kg
[~2018-12-15 13:59] MED LIST changes: +BUME2 PO; +CALCIUM PO; +Clotrimazole15 GM TOP; +ENTRESTO 97 MG1 EACH PO; +LEVO750 PO; +METO2.5 PO; +Percocet 5-3251 EACH PO; +SPIR25 PO; +TAMS.4ER PO
[2018-12-15 14:44] LABS: BASOPHILS ABSOLUTE AUTO 0.04 K/mm3 (0.00-0.23); BASOPHILS PERCENT AUTO 0 % (0-2); EOSINOPHILS PERCENT AUTO 1 % (0-6); Hematocrit 35.3 % (37.0-53.0); Hemoglobin 11.5 g/dL (13.5-17.5); IMMATURE GRAN ABSOLUTE AUTO 0.07 K/mm3 (0.00-0.10); IMMATURE GRAN PERCENT AUTO 1 % (0-1); LYMPHOCYTES ABSOLUTE AUTO 1.61 K/mm3 (0.84-5.20); LYMPHOCYTES PERCENT AUTO 14 % (21-46); MONOCYTES ABSOLUTE AUTO 1.35 K/mm3 (0.16-1.47); MONOCYTES PERCENT AUTO 11 % (4-13); Mean Corpuscular HGB 27.4 pg (26.0-34.0); Mean Corpuscular HGB Conc 32.6 g/dL (31.5-36.5); Mean Corpuscular Volume 84 fL (80-100); Mean Platelet Volume 9.4 fL (9.1-12.4); NEUTROPHILS ABSOLUTE AUTO 8.63 K/mm3 (1.96-9.15); NEUTROPHILS PERCENT AUTO 73 % (41-73); Platelet Count 172 K/mm3 (150-400); RDW Coefficient Variation 15.1 % (11.7-14.2); RDW Standard Deviation 46.3 fL (35.1-46.3)
[2018-12-15 15:04] LABS: Albumin, Blood 2.9 g/dL (3.4-5.0); Albumin/Globulin Ratio 0.7 (0.8-1.8); Bun/Creatinine Ratio 26.8 (12.0-20.0); Calcium, Blood 8.6 mg/dL (8.5-10.1); Creatinine, Blood 3.36 mg/dL (0.60-1.20); Potassium, Blood 3.6 mmol/L (3.5-5.5); Total Protein, Blood 6.9 g/dL (6.4-8.2)
[2018-12-15 15:11] LABS: International Normalized Ratio 1.26; Prothrombin Time Results 13.1 Sec (9.7-11.5)
--- NOTE | 2018-12-15 17:57 | NUR ---
ASSUMED CARE: PT NEW ADMISSION FROM ED. [place] BUT ALERT AND ORIENTED. C/O PAIN AROUND SCROTUM AND PENIS. AREA IS RED WITH SLOUGHING SKIN. CRADLE PROVIDED TO PROTECT AREA FROM RUBBING OF BLANKETS. PT ASKED FOR CREAM TO APPLY. CALL TO DR PALACIO FOR THIS WHO STATES SHE WAS HEADED TO ROOM. IN ROOM WITH PT AND FAMILY NOW
--- NOTE | 2018-12-15 19:12 | NUR ---
PT'S STATED THAT PT'S EDUARDO WAS PLACED WHEN HE WAS HERE ON THE . PT AND STATES THAT IT WAS PAINFUL TO INSERT AND HE WAS SUPPOSED TO FOLLOW UP WITH A UROLOGIST THIS WEEK. DISCUSSED WITH PRODUCT TESTER AND DECIDED TO NOT DC EDUARDO BUT TO CHANGE BAG. PASSED ON TO CHERELLE BARR TO COLLECT SPECIMEN.
[2018-12-15 21:34] LABS: Source, Urine Catheter
[2018-12-15 21:46] LABS: Bilirubin, Urine Neg (Neg); Blood, Urine 2+ (Neg); Glucose Qualitative, Urine Neg (Neg); Ketones, Urine Neg (Neg); Leukocyte Esterase, Urine 1+ (Neg); Nitrite, Urine Neg (Neg); Protein, Urine 2+ (Neg); Urobilinogen, Urine NORM (Normal); pH, Urine 6.5 (5.0-8.0)
[2018-12-15 22:01] LABS: Appearance, Urine Clear (Clear); Color, Urine Yellow (P-Yellow)
[2018-12-15 22:06] LABS: Bacteria Not Seen /hpf; Red Blood Cells, Urine Rare /hpf (0-2); Squamous Epithelial Cells Not Seen /hpf (Few); White Blood Cells, Urine 0-2 /hpf (0-5)
[2018-12-16 05:04] LABS: BASOPHILS ABSOLUTE AUTO 0.03 K/mm3 (0.00-0.23); BASOPHILS PERCENT AUTO 0 % (0-2); EOSINOPHILS ABSOLUTE AUTO 0.16 K/mm3 (0.00-0.68); EOSINOPHILS PERCENT AUTO 2 % (0-6); Hematocrit 35.9 % (37.0-53.0); Hemoglobin 11.6 g/dL (13.5-17.5); IMMATURE GRAN ABSOLUTE AUTO 0.04 K/mm3 (0.00-0.10); IMMATURE GRAN PERCENT AUTO 0 % (0-1); LYMPHOCYTES PERCENT AUTO 18 % (21-46); MONOCYTES ABSOLUTE AUTO 1.09 K/mm3 (0.16-1.47); MONOCYTES PERCENT AUTO 12 % (4-13); Mean Corpuscular HGB 27.3 pg (26.0-34.0); Mean Corpuscular HGB Conc 32.3 g/dL (31.5-36.5); Mean Corpuscular Volume 85 fL (80-100); Mean Platelet Volume 9.4 fL (9.1-12.4); NEUTROPHILS ABSOLUTE AUTO 6.25 K/mm3 (1.96-9.15); NEUTROPHILS PERCENT AUTO 68 % (41-73); Platelet Count 148 K/mm3 (150-400); RDW Standard Deviation 46.3 fL (35.1-46.3); Red Blood Cell Count 4.25 M/mm3 (4.30-5.90); White Blood Cell Count 9.27 K/mm3 (4.00-11.30)
[2018-12-16 05:12] LABS: International Normalized Ratio 1.39; Prothrombin Time Results 14.3 Sec (9.7-11.5)
[2018-12-16 05:25] LABS: Magnesium, Blood 2.1 mg/dL (1.6-2.4)
[2018-12-16 05:30] LABS: Albumin, Blood 2.7 g/dL (3.4-5.0); Albumin/Globulin Ratio 0.7 (0.8-1.8); Bilirubin, Total 0.8 mg/dL (0.1-1.0); Calcium, Blood 8.4 mg/dL (8.5-10.1); Globulin, Blood 3.9 g/dL (2.2-4.0); Phosphorus, Blood 3.3 mg/dL (2.5-4.9); Potassium, Blood 3.6 mmol/L (3.5-5.5); Total Protein, Blood 6.6 g/dL (6.4-8.2)
--- NOTE | 2018-12-16 05:41 | NUR ---
SHIFT SUMMARY: PT IS ALERT AND ORIENTED. PT IS CALM AND COOPERATIVE WITH CARE. PT CALLS APPROPRIATELY. PT IS A 1-2 ASSIST, NOT OUT OF BED OVERNIGHT, BED CRABTREE USED SEVERAL TIMES FOR BM. EDUARDO INTACT AND DRAINING YELLOW URINE. PT REPORTS ABD PAIN R/T TO GAS, CALLED DR. RODRIGUEZ AND RECEIVED AN ORDER FOR GI COCKTAIL, SYMPTOMS HAD RESOLVED BEFORE MEDICATION WAS GIVEN. PT DENIES NAUSEA, VOMITING, AND SOB. NO ACUTE CHANGES OR COMPLICATIONS. WILL REPORT TO DAY NURSE.
[2018-12-16 07:35] LABS: Bun/Creatinine Ratio 32.1 (12.0-20.0); Creatinine, Blood 2.77 mg/dL (0.60-1.20)
--- NOTE | 2018-12-16 07:42 | NUR ---
NOTIFIED DR. Beck ANDRADE PT'S BP THIS AM AND THERE ARE NO PARAMETERS ON HIS METOPROLOL. DR. Beck ANDRADE SAID TO HOLD METOPROLOL FOR SYSTOLIC BP LESS THAN 100 OR HR UNDER 50. NO OTHER NEW ORDERS AT THIS TIME.
--- NOTE | 2018-12-16 18:47 | NUR ---
SHIFT SUMMARY- PT DENIES PAIN. DENIES SOB. RESP E/U ON RA. DENIES N/V. EDUARDO PATENT AND DRAINING. AFIB AT 83 PER PCU RAILROAD COOK. 1 ASSIST WITH FWW TO THE BATHROOM. PT'S BP 99/[address] CALDERA TO HOLD METOPROLOL THIS AM. SEE PREVIOUS NOTE. MEPILEX ON COCCYX C/D/I. PT VERY [place]. NO OTHER SIGNIFICANT CHANGES THIS SHIFT.
--- NOTE | 2018-12-17 05:01 | NUR ---
SHIFT SUMMARY A/O, ABLE TO MAKE NEEDS KNOWN. COOPERATIVE WITH CARE. ANSWERS QUESTIONS APPROPRIATELY; HOWEVER, VERY KAKE. DENIES PAIN/DISCOMFORT. APPEARED TO REST MUCH OF SHIFT. NO ACUTE CHANGES OVERNIGHT. VSS/AFEBRILE. BED IN LOWEST POSITION. ALARM ON. CALL LIGHT AND BELONGINGS WITHIN REACH. WCTM. REPORT TO ONCOMING RN.
[2018-12-17 05:31] LABS: International Normalized Ratio 1.49; Prothrombin Time Results 15.2 Sec (9.7-11.5)
[2018-12-17 05:35] LABS: BASOPHILS ABSOLUTE AUTO 0.02 K/mm3 (0.00-0.23); BASOPHILS PERCENT AUTO 0 % (0-2); EOSINOPHILS ABSOLUTE AUTO 0.19 K/mm3 (0.00-0.68); EOSINOPHILS PERCENT AUTO 2 % (0-6); Hematocrit 34.5 % (37.0-53.0); Hemoglobin 10.9 g/dL (13.5-17.5); IMMATURE GRAN ABSOLUTE AUTO 0.03 K/mm3 (0.00-0.10); IMMATURE GRAN PERCENT AUTO 0 % (0-1); LYMPHOCYTES ABSOLUTE AUTO 1.47 K/mm3 (0.84-5.20); LYMPHOCYTES PERCENT AUTO 19 % (21-46); MONOCYTES ABSOLUTE AUTO 0.89 K/mm3 (0.16-1.47); MONOCYTES PERCENT AUTO 12 % (4-13); Mean Corpuscular HGB 27.3 pg (26.0-34.0); Mean Corpuscular HGB Conc 31.6 g/dL (31.5-36.5); Mean Corpuscular Volume 87 fL (80-100); Mean Platelet Volume 9.5 fL (9.1-12.4); NEUTROPHILS ABSOLUTE AUTO 5.17 K/mm3 (1.96-9.15); NEUTROPHILS PERCENT AUTO 67 % (41-73); Platelet Count 136 K/mm3 (150-400); RDW Coefficient Variation 15.2 % (11.7-14.2); RDW Standard Deviation 48.2 fL (35.1-46.3); Red Blood Cell Count 3.99 M/mm3 (4.30-5.90); White Blood Cell Count 7.77 K/mm3 (4.00-11.30)
[2018-12-17 06:01] LABS: Bun/Creatinine Ratio 35.7 (12.0-20.0); Calcium, Blood 8.2 mg/dL (8.5-10.1); Creatinine, Blood 1.99 mg/dL (0.60-1.20); Potassium, Blood 3.8 mmol/L (3.5-5.5)
--- NOTE | 2018-12-17 11:05 | NUR ---
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 He previously was admitted in November of this year with a scrotal cellulitis. Per notes, he wasn't bouncing back to his usual state of health and has been readmitted. He has a history of cardiomyopathy, mechanical heart valve, DM type 2, HTN, hyperlipidemia, CKD stage 3, degenerative disc disease in the back. Jim lives with his who he reports isn't in the best health. They live alone. He has a step-son who he reports can help out at home when needed. Jim reports that he checks his blood sugars twice and day and that lately his CBG are erratic and in the 200-300 range. He normally runs 98-160 per his report. He reports that his scrotal area hurts when it is touched or the sheets rub on it. He stated that the cream that staff have been putting on his scrotal area is helping to keep him more comfortable. Jim reports he has a walker at home and grab bars in the bathroom. He also beleives he had a few visits from HH staff during the time he was discharged from [facility] until his readmit. He is unsure what agency these staff members were from. Jim denies any SOB, nausea, or discomfort at this time. He has an indwelling quinn currently. Dr. Vincent visited with pt during my visit and pt ambulated into doorway and back to bed with walker and SBA. Dr. Vincent plans to arrange for HH to follow pt at home and encouraged pt to have additional help at home. Dr. Vincent states he will contact Viviana [facility] care coordiator, to assist with meeting dc needs for pt. Pt will need a urology appointment. He states that he was supposed to have the urology appt tomorrow, but that was cancelled because he was admitted to the hospital.
[2018-12-17] MEDS ORDERED: FLUC100 (14:54)
[2018-12-17] MEDS ORDERED: ACET325 (14:55)
--- NOTE | 2018-12-17 15:15 | NUR ---
DISCHARGE NOTE PT DISCHARGED VIA W/C POV WITH SPOUSE. MEDICATIONS AND FOLLOW UP INSTRUCTIONS PROVIDED VIA WRITTEN AND VERBAL COMMUNICATION PT AND FAMILY VERBALIZED UNDERSTANDING. ALL VALUABLE AND BELONGINGS TAKEN HOME BY PATIENT.
== END 2018-12-17 15:37 | disposition home health service (06) | DRG 682 ==
LOC: ER 13:59 → MEDS 17:09
PROVIDERS: Family Medicine; Internal Medicine; ADMIT Internal Medicine
DX: N17.9 Acute kidney failure, unspecified (principal); G92 Toxic encephalopathy; I50.22 Chronic systolic (congestive) heart failure; I13.0 Hypertensive heart and chronic kidney disease with heart failure and stage 1 through stage 4 chronic kidney disease, or unspecified chronic kidney disease; N18.3 Chronic kidney disease, stage 3 (moderate); L30.8 Other specified dermatitis; E11.22 Type 2 diabetes mellitus with diabetic chronic kidney disease; E11.43 Type 2 diabetes mellitus with diabetic autonomic (poly)neuropathy; E88.09 Other disorders of plasma-protein metabolism, not elsewhere classified; I95.9 Hypotension, unspecified; Z66 Do not resuscitate; R62.7 Adult failure to thrive; Z79.01 Long term (current) use of anticoagulants; Z79.4 Long term (current) use of insulin; Z79.899 Other long term (current) drug therapy; Z95.2 Presence of prosthetic heart valve
CPT/HCPCS: 36415; 71045; 80048; 80053; 81001; 82947; 83735; 83970; 84100; 85025; 85610; 87086; 93005; 93010; 96360; 99285-25; J1450; J7030; J7120

== ENCOUNTER → 2019-01-24 | Outpatient (CLI) | payer MEDICARE ==
[~2019-01-24] MED LIST changes: +ACET325; +FLUC100
[2019-01-24 17:58] LABS: BASOPHILS ABSOLUTE AUTO 0.02 K/mm3 (0.00-0.23); BASOPHILS PERCENT AUTO 0 % (0-2); EOSINOPHILS ABSOLUTE AUTO 0.09 K/mm3 (0.00-0.68); EOSINOPHILS PERCENT AUTO 1 % (0-6); Hematocrit 40.4 % (37.0-53.0); IMMATURE GRAN ABSOLUTE AUTO 0.03 K/mm3 (0.00-0.10); IMMATURE GRAN PERCENT AUTO 0 % (0-1); LYMPHOCYTES ABSOLUTE AUTO 1.43 K/mm3 (0.84-5.20); LYMPHOCYTES PERCENT AUTO 19 % (21-46); MONOCYTES ABSOLUTE AUTO 0.68 K/mm3 (0.16-1.47); MONOCYTES PERCENT AUTO 9 % (4-13); Mean Corpuscular HGB Conc 32.2 g/dL (31.5-36.5); Mean Corpuscular Volume 87 fL (80-100); Mean Platelet Volume 9.2 fL (9.1-12.4); NEUTROPHILS ABSOLUTE AUTO 5.32 K/mm3 (1.96-9.15); NEUTROPHILS PERCENT AUTO 70 % (41-73); Platelet Count 172 K/mm3 (150-400); RDW Coefficient Variation 16.6 % (11.7-14.2); RDW Standard Deviation 51.8 fL (35.1-46.3); Red Blood Cell Count 4.64 M/mm3 (4.30-5.90); White Blood Cell Count 7.57 K/mm3 (4.00-11.30)
[2019-01-24 18:15] LABS: Albumin, Blood 3.9 g/dL (3.4-5.0); Albumin/Globulin Ratio 0.9 (0.8-1.8); Bilirubin, Total 0.7 mg/dL (0.1-1.0); Bun/Creatinine Ratio 42.8 (12.0-20.0); Calcium, Blood 9.7 mg/dL (8.5-10.1); Creatinine, Blood 2.36 mg/dL (0.60-1.20); Globulin, Blood 4.4 g/dL (2.2-4.0); Total Protein, Blood 8.3 g/dL (6.4-8.2)
== END | disposition home or self-care (01) ==
LOC: LAB HH 17:07 → LAB 17:07
PROVIDERS: Physician Assistant Medical
DX: N45.3 Epididymo-orchitis (principal)
CPT/HCPCS: 80053; 85025

== ENCOUNTER 2019-03-04 11:18 | Emergency (ER) | payer MEDICARE ==
[~2019-03-04] VITALS: Ht 162.6 cm; Wt 71.7 kg
[2019-03-04] MEDS ORDERED: ENOX80I SC (11:43)
== END 2019-03-04 12:00 | disposition home or self-care (01) ==
LOC: ER 11:18
DX: S51.811A Laceration without foreign body of right forearm, initial encounter (principal); I10 Essential (primary) hypertension; E11.42 Type 2 diabetes mellitus with diabetic polyneuropathy; M10.9 Gout, unspecified; Z79.4 Long term (current) use of insulin; Z79.899 Other long term (current) drug therapy; Z95.2 Presence of prosthetic heart valve; Z79.01 Long term (current) use of anticoagulants; X58.XXXA Exposure to other specified factors, initial encounter
CPT/HCPCS: 12001; 99282-25

== ENCOUNTER → 2019-03-12 | Outpatient (CLI) | payer MEDICARE ==
[~2019-03-12] MED LIST changes: +ENOX80I SC
== END | disposition home or self-care (01) ==
LOC: LAB SHORT 15:45 → LAB EV 15:45
DX: E11.21 Type 2 diabetes mellitus with diabetic nephropathy (principal); R32 Unspecified urinary incontinence
CPT/HCPCS: 87086

== ENCOUNTER 2019-05-30 13:45 | Emergency (ER) | payer MEDICARE ==
[~2019-05-30] VITALS: Ht 167.6 cm; Wt 79.4 kg
[2019-05-30 14:32] LABS: BASOPHILS ABSOLUTE AUTO 0.04 K/mm3 (0.00-0.23); BASOPHILS PERCENT AUTO 1 % (0-2); EOSINOPHILS ABSOLUTE AUTO 0.15 K/mm3 (0.00-0.68); EOSINOPHILS PERCENT AUTO 2 % (0-6); Hematocrit 33.7 % (37.0-53.0); Hemoglobin 10.4 g/dL (13.5-17.5); IMMATURE GRAN ABSOLUTE AUTO 0.02 K/mm3 (0.00-0.10); IMMATURE GRAN PERCENT AUTO 0 % (0-1); LYMPHOCYTES ABSOLUTE AUTO 1.08 K/mm3 (0.84-5.20); LYMPHOCYTES PERCENT AUTO 15 % (21-46); MONOCYTES ABSOLUTE AUTO 0.87 K/mm3 (0.16-1.47); MONOCYTES PERCENT AUTO 12 % (4-13); Mean Corpuscular HGB 27.4 pg (26.0-34.0); Mean Corpuscular HGB Conc 30.9 g/dL (31.5-36.5); Mean Corpuscular Volume 89 fL (80-100); NEUTROPHILS ABSOLUTE AUTO 5.13 K/mm3 (1.96-9.15); NEUTROPHILS PERCENT AUTO 70 % (41-73); Platelet Count 142 K/mm3 (150-400); RDW Coefficient Variation 15.1 % (11.7-14.2); RDW Standard Deviation 49.1 fL (35.1-46.3); Red Blood Cell Count 3.79 M/mm3 (4.30-5.90); White Blood Cell Count 7.29 K/mm3 (4.00-11.30)
[2019-05-30 16:05] LABS: Troponin I 0.036 ng/mL (0.000-0.040)
[2019-05-30 16:12] LABS: Bun/Creatinine Ratio 23.1 (12.0-20.0); Creatinine, Blood 1.86 mg/dL (0.60-1.20)
[2019-05-30 16:26] LABS: Albumin, Blood 3.4 g/dL (3.4-5.0); Albumin/Globulin Ratio 0.9 (0.8-1.8); Bilirubin, Total 0.4 mg/dL (0.1-1.0); Calcium, Blood 8.8 mg/dL (8.5-10.1); Globulin, Blood 3.7 g/dL (2.2-4.0); Potassium, Blood 5.8 mmol/L (3.5-5.5); Total Protein, Blood 7.1 g/dL (6.4-8.2)
[2019-05-30 16:53] LABS: Source, Urine Voided
[2019-05-30 17:04] LABS: Bilirubin, Urine Neg (Neg); Blood, Urine 1+ (Neg); Glucose Qualitative, Urine Neg (Neg); Ketones, Urine Neg (Neg); Leukocyte Esterase, Urine Neg (Neg); Nitrite, Urine Neg (Neg); Protein, Urine 2+ (Neg); Specific Gravity, Urine 1.015 (1.003-1.022); Urobilinogen, Urine NORM (Normal)
[2019-05-30 17:26] LABS: Appearance, Urine Clear (Clear); Color, Urine Yellow (P-Yellow)
[2019-05-30 17:36] LABS: Squamous Epithelial Cells Not Seen /hpf (Few)
[2019-05-30 17:39] LABS: Bacteria Few /hpf; Red Blood Cells, Urine 0-2 /hpf (0-2); White Blood Cells, Urine Rare /hpf (0-5)
[2019-05-30 18:05] LABS: International Normalized Ratio 2.56; Prothrombin Time Results 24.9 Sec (9.7-11.5)
[2019-05-30 18:30] LABS: Bun/Creatinine Ratio 26.8 (12.0-20.0); Calcium, Blood 8.9 mg/dL (8.5-10.1); Creatinine, Blood 1.68 mg/dL (0.60-1.20); Potassium, Blood 6.4 mmol/L (3.5-5.5)
[2019-05-30 19:51] LABS: Bun/Creatinine Ratio 25.3 (12.0-20.0); Calcium, Blood 8.9 mg/dL (8.5-10.1); Creatinine, Blood 1.78 mg/dL (0.60-1.20); Potassium, Blood 5.6 mmol/L (3.5-5.5)
== END 2019-05-30 20:16 | disposition home or self-care (01) ==
LOC: ER 13:45
PROVIDERS: Emergency Medicine; Physician Assistant
DX: I12.9 Hypertensive chronic kidney disease with stage 1 through stage 4 chronic kidney disease, or unspecified chronic kidney disease (principal); N18.9 Chronic kidney disease, unspecified; E11.22 Type 2 diabetes mellitus with diabetic chronic kidney disease; R53.1 Weakness; E87.8 Other disorders of electrolyte and fluid balance, not elsewhere classified; Z86.73 Personal history of transient ischemic attack (TIA), and cerebral infarction without residual deficits; E78.5 Hyperlipidemia, unspecified; I51.7 Cardiomegaly; Z79.4 Long term (current) use of insulin; Z79.899 Other long term (current) drug therapy
CPT/HCPCS: 36415; 70450; 71046; 80048; 80053; 81001; 84443; 84484; 85025; 85610; 93005; 93010; 96361; 96374; 99285-25; J2405; J7030

== ENCOUNTER → 2019-07-09 | Outpatient (CLI) | payer MEDICARE | END | disposition home or self-care (01) | LOC: LAB EV 16:50 → LAB SHORT 16:50 | DX: R35.0 Frequency of micturition (principal) | CPT/HCPCS: 87086 ==

== ENCOUNTER 2019-07-29 16:54 | Emergency (ER) | payer MEDICARE ==
[~2019-07-29] VITALS: Ht 162.6 cm; Wt 68.5 kg
== END 2019-07-29 18:30 | disposition home or self-care (01) ==
LOC: ER 16:54
DX: R79.1 Abnormal coagulation profile (principal); E11.42 Type 2 diabetes mellitus with diabetic polyneuropathy; I12.9 Hypertensive chronic kidney disease with stage 1 through stage 4 chronic kidney disease, or unspecified chronic kidney disease; E11.22 Type 2 diabetes mellitus with diabetic chronic kidney disease; N18.3 Chronic kidney disease, stage 3 (moderate); Z79.899 Other long term (current) drug therapy; Z79.01 Long term (current) use of anticoagulants; Z79.4 Long term (current) use of insulin
CPT/HCPCS: 36415; 85610; 99283

== ENCOUNTER 2019-10-15 17:44 | Emergency (ER) | payer MEDICARE ==
[~2019-10-15] VITALS: Ht 165.1 cm; Wt 69.0 kg
== END 2019-10-15 19:28 | disposition home or self-care (01) ==
LOC: ER 17:44
DX: R79.1 Abnormal coagulation profile (principal); Z79.01 Long term (current) use of anticoagulants; Z79.899 Other long term (current) drug therapy; E11.22 Type 2 diabetes mellitus with diabetic chronic kidney disease; I12.9 Hypertensive chronic kidney disease with stage 1 through stage 4 chronic kidney disease, or unspecified chronic kidney disease; N18.9 Chronic kidney disease, unspecified; E78.5 Hyperlipidemia, unspecified; Z79.4 Long term (current) use of insulin
CPT/HCPCS: 99282

== ENCOUNTER 2019-10-24 13:55 | Observation (INO) | payer MEDICARE ==
[~2019-10-24] VITALS: Ht 165.1 cm; Wt 66.7 kg
[2019-10-24 15:17] LABS: BASOPHILS ABSOLUTE AUTO 0.03 K/mm3 (0.00-0.23); BASOPHILS PERCENT AUTO 0 % (0-2); EOSINOPHILS ABSOLUTE AUTO 0.03 K/mm3 (0.00-0.68); EOSINOPHILS PERCENT AUTO 0 % (0-6); Hematocrit 32.1 % (37.0-53.0); Hemoglobin 10.1 g/dL (13.5-17.5); IMMATURE GRAN ABSOLUTE AUTO 0.09 K/mm3 (0.00-0.10); IMMATURE GRAN PERCENT AUTO 1 % (0-1); LYMPHOCYTES ABSOLUTE AUTO 1.38 K/mm3 (0.84-5.20); LYMPHOCYTES PERCENT AUTO 10 % (21-46); MONOCYTES ABSOLUTE AUTO 1.51 K/mm3 (0.16-1.47); MONOCYTES PERCENT AUTO 11 % (4-13); Mean Corpuscular HGB Conc 31.5 g/dL (31.5-36.5); Mean Corpuscular Volume 83 fL (80-100); Mean Platelet Volume 9.7 fL (9.1-12.4); NEUTROPHILS ABSOLUTE AUTO 10.29 K/mm3 (1.96-9.15); NEUTROPHILS PERCENT AUTO 77 % (41-73); Platelet Count 174 K/mm3 (150-400); RDW Standard Deviation 48.6 fL (35.1-46.3); Red Blood Cell Count 3.88 M/mm3 (4.30-5.90); White Blood Cell Count 13.33 K/mm3 (4.00-11.30)
[2019-10-24 15:33] LABS: Albumin, Blood 2.9 g/dL (3.4-5.0); Albumin/Globulin Ratio 0.7 (0.8-1.8); Bilirubin, Total 0.8 mg/dL (0.1-1.0); Bun/Creatinine Ratio 27.1 (12.0-20.0); Creatinine, Blood 1.66 mg/dL (0.60-1.20); Globulin, Blood 4.3 g/dL (2.2-4.0); Potassium, Blood 5.6 mmol/L (3.5-5.5); Total Protein, Blood 7.2 g/dL (6.4-8.2)
[2019-10-24 15:36] LABS: Prothrombin Time Results 46.3 Sec (9.7-11.5)
[2019-10-24 15:38] LABS: International Normalized Ratio 5.06
[2019-10-24 16:52] LABS: Source, Urine Catheter
[2019-10-24 16:57] LABS: Bilirubin, Urine Neg (Neg); Blood, Urine 3+ (Neg); Glucose Qualitative, Urine Neg (Neg); Ketones, Urine 1+ (Neg); Leukocyte Esterase, Urine Neg (Neg); Nitrite, Urine Neg (Neg); Protein, Urine 2+ (Neg); Specific Gravity, Urine 1.015 (1.003-1.022); Urobilinogen, Urine NORM (Normal)
[2019-10-24 17:03] LABS: Appearance, Urine Clear (Clear); Color, Urine Yellow (P-Yellow); White Blood Cells, Urine Not Seen /hpf (0-5)
[2019-10-24 17:04] LABS: Bacteria Few /hpf; Squamous Epithelial Cells Not Seen /hpf (Few)
[2019-10-24] MEDS ORDERED: WARF2.5 PO (18:26)
--- NOTE | 2019-10-24 18:33 | NUR ---
SUMMARY PT ADMITTED FROM THE ER FOR WEAKNESS, PT IS ALERT AND ORIENTED, [place], WENT HOME, PT ABLE TO AMBULATE WITH MIN ASSIST TO THE BATHROOM, ORIENTED PT TO THE ROOM AND CALL SYSTEM, EDUCATED THE PT ABOUT THE IMPORTANCE OF CALLING FOR ASSISTANCE TO PREVENT FALLS, DR SALDAÑA IN WITH THE PT NOW, WILL CONT TO MONITOR
--- NOTE | 2019-10-25 01:38 | NUR ---
CODE STATUS: PATIENT STATES HE WOULD LIKE TO HAVE CPR IF CARDIAC ARREST HAPPENS. THEIR IS A DNR ORDER, DR OSUNA IS NOTIFIED. ORDER OBTAINED TO MAKE PATIENT A FULL CODE.
--- NOTE | 2019-10-25 05:52 | NUR ---
EKG COMPLETED 10/25/19 @ 05[address]. [address] PL[address] IN CHART. STATES COMFORTABLY W/O CP. BED IN LOWEST POSITION. CALL LIGHT WITHIN REACH.
[2019-10-25 07:38] LABS: International Normalized Ratio 4.55
[2019-10-25 07:46] LABS: Bun/Creatinine Ratio 26.1 (12.0-20.0); Calcium, Blood 8.3 mg/dL (8.5-10.1); Creatinine, Blood 2.03 mg/dL (0.60-1.20); Potassium, Blood 5.3 mmol/L (3.5-5.5)
--- NOTE | 2019-10-25 08:05 | NUR ---
SHIFT SUMMARY: PATIENT IS A&OX3, NO COMPLAINTS OF PAIN OR DISCOMFORT. PATIENT IS ASSISTED TO THE BATHROOM MULTIPLE TIMES DURNING THE SHIFT FOR A LOOSE BM. GAIT IS WEAK AND UNSTEADY. TELEMETRY IS IN PLACE SHOWING A-FIB IN THE 70'S NO INCIDENTS OR CHEST PAIN AND VS RENAIN STABLE.
--- NOTE | 2019-10-25 19:38 | NUR ---
SHIFT SUMMARY: NO ACUTE CHANGES TO REPORT THIS SHIFT. PT A&O; [place]; CALM AND COOPERATIVE WITH CARE. INR CH @ 4.55; DR AWARE; BLOOD THINNERS HELD. PT & OT EVALS THIS SHIFT; PATIENT AT BASELINE; D/C HOME WITH HOME HEALTH LATER TODAY. REPORT GIVEN TO ONCOMING RN.
== END 2019-10-25 20:05 | disposition home or self-care (01) ==
LOC: ER 13:55 → MEDS 13:56
PROVIDERS: Physician Assistant; ADMIT Internal Medicine Endocrinology, Diabetes & Metabolism
DX: N17.9 Acute kidney failure, unspecified (principal); I12.9 Hypertensive chronic kidney disease with stage 1 through stage 4 chronic kidney disease, or unspecified chronic kidney disease; E11.22 Type 2 diabetes mellitus with diabetic chronic kidney disease; N18.3 Chronic kidney disease, stage 3 (moderate); R79.89 Other specified abnormal findings of blood chemistry; R79.1 Abnormal coagulation profile; E11.65 Type 2 diabetes mellitus with hyperglycemia; I42.0 Dilated cardiomyopathy; I48.20 Chronic atrial fibrillation, unspecified; R49.0 Dysphonia; R53.1 Weakness; E87.5 Hyperkalemia; R63.4 Abnormal weight loss; Z68.32 Body mass index [BMI] 32.0-32.9, adult; Z79.01 Long term (current) use of anticoagulants; Z79.4 Long term (current) use of insulin; Z79.899 Other long term (current) drug therapy; Z90.49 Acquired absence of other specified parts of digestive tract; Z66 Do not resuscitate; Z95.2 Presence of prosthetic heart valve
CPT/HCPCS: 36415; 71046; 80048; 80053; 81001; 82947; 83690; 84484; 85025; 85610; 93005; 93010; 96365; 97162; 99285-25; G0378; J7030; J7070

== ENCOUNTER 2020-03-25 13:13 | Inpatient (IN) | payer MEDICARE ==
[~2020-03-25] VITALS: Ht 162.6 cm; Wt 66.9 kg
[~2020-03-25 13:13] MED LIST changes: +WARF2.5 PO
[2020-03-25] MEDS ORDERED: FERSU300 PO (13:30)
[2020-03-25] MEDS ORDERED: FUROSEMIDE40 MG PO (13:31)
[2020-03-25] MEDS ORDERED: Oxybutynin Chlo15 MG PO (13:32)
[2020-03-25] MEDS ORDERED: METO50ER PO (14:03)
[2020-03-25] MEDS ORDERED: SPIRONOLACTONE25 MG PO (14:04)
[2020-03-25] MEDS ORDERED: Protonix40 MG PO (14:05)
[2020-03-25 14:10] LABS: Source, Urine Clean Catch
[2020-03-25 14:31] LABS: Albumin, Blood 2.3 g/dL (3.4-5.0); Albumin/Globulin Ratio 0.5 (0.8-1.8); Bilirubin, Total 0.6 mg/dL (0.1-1.0); Bun/Creatinine Ratio 25.5 (12.0-20.0); Calcium, Blood 8.8 mg/dL (8.5-10.1); Creatinine, Blood 1.65 mg/dL (0.60-1.20); Globulin, Blood 4.9 g/dL (2.2-4.0); International Normalized Ratio 1.17; Prothrombin Time Results 12.4 Sec (9.7-11.5); Total Protein, Blood 7.2 g/dL (6.4-8.2)
[2020-03-25 14:32] LABS: BASOPHILS ABSOLUTE AUTO 0.04 K/mm3 (0.00-0.23); BASOPHILS PERCENT AUTO 0 % (0-2); EOSINOPHILS ABSOLUTE AUTO 0.09 K/mm3 (0.00-0.68); EOSINOPHILS PERCENT AUTO 1 % (0-6); Hematocrit 26.4 % (37.0-53.0); Hemoglobin 7.9 g/dL (13.5-17.5); IMMATURE GRAN ABSOLUTE AUTO 0.07 K/mm3 (0.00-0.10); IMMATURE GRAN PERCENT AUTO 1 % (0-1); LYMPHOCYTES ABSOLUTE AUTO 1.21 K/mm3 (0.84-5.20); LYMPHOCYTES PERCENT AUTO 10 % (21-46); MONOCYTES ABSOLUTE AUTO 1.45 K/mm3 (0.16-1.47); MONOCYTES PERCENT AUTO 12 % (4-13); Mean Corpuscular HGB 23.4 pg (26.0-34.0); Mean Corpuscular HGB Conc 29.9 g/dL (31.5-36.5); Mean Corpuscular Volume 78 fL (80-100); Mean Platelet Volume 9.8 fL (9.1-12.4); NEUTROPHILS ABSOLUTE AUTO 9.05 K/mm3 (1.96-9.15); NEUTROPHILS PERCENT AUTO 76 % (41-73); Platelet Count 290 K/mm3 (150-400); RDW Coefficient Variation 17.3 % (11.7-14.2); RDW Standard Deviation 49.2 fL (35.1-46.3); Red Blood Cell Count 3.37 M/mm3 (4.30-5.90); White Blood Cell Count 11.91 K/mm3 (4.00-11.30)
[2020-03-25 14:35] LABS: Bilirubin, Urine Neg (Neg); Blood, Urine 1+ (Neg); Glucose Qualitative, Urine Neg (Neg); Ketones, Urine Neg (Neg); Leukocyte Esterase, Urine 3+ (Neg); Nitrite, Urine Neg (Neg); Protein, Urine Neg (Neg); Specific Gravity, Urine 1.015 (1.003-1.022); Urobilinogen, Urine NORM (Normal)
[2020-03-25 14:45] LABS: Troponin I 0.072 ng/mL (0.000-0.040)
[2020-03-25 14:54] LABS: Appearance, Urine Hazy (Clear); Color, Urine Yellow (P-Yellow)
[2020-03-25 14:57] LABS: Bacteria Few /hpf; Red Blood Cells, Urine 0-2 /hpf (0-2); Squamous Epithelial Cells Not Seen /hpf (Few); White Blood Cells, Urine TNTC /hpf (0-5); Yeast/Fungi Urine Mod /hpf
--- NOTE | 2020-03-25 18:26 | NUR ---
BEING ADMITTED TO ROOM 360 FROM THE E.R. ASSESSMENT DONE, PHOTOS AND WOUND CARE DONE TO HIS LEGS. THE WOUNDS ON HIS R LEG ARE MUCH MORE EXTENSIVE THAN ON THE LEFT AND DRAIN MORE. NONADHERANT PUT ON AFTER CLEANING, FOLLOWED BY EXUDRY, THEN CAST PADDING, THEN BERONICA WRAP BILATERALLY. HE TOLERATED IT WELL. HE GENERALLY HAS NO PAIN. HE IS VERY [place]. HIS BROUGHT HIS GLASSES TO THE HOSPITAL FOR HIM. HE IS WEAK, COLD AND HUNGRY. WARM BLANKET GIVEN AND DINNER IS ON THE WAY. BED ALARM ON. HE IS ORIENTED BUT MAY HAVE TROUBLE WITH THE CALL LIGHT AND TELEPHONE. THERAPEUTIC LOVENOX STARTED. ROCEPHIN STARTED. IT WILL BE TOO CLOSE TO SHIFT CHANGE TO START A TRANSFUSION.
[2020-03-25] MEDS ORDERED: Drysol35 ML TOP (19:27)
[2020-03-25] MEDS ORDERED: FURO40 PO (19:28)
--- NOTE | 2020-03-25 21:56 | NUR ---
UNIT OF PRBC INFUSING PER MD ORDERS AFTER PT SIGNED CONSENT. NO NOTED ADVERSE REACTIONS OF THIS WRITING. WILL CONTINUE TO MONITOR
--- NOTE | 2020-03-26 03:50 | NUR ---
SHIFT SUMMARY RECEIVED 1 UNIT OF PRBC PER MD ORDERS, ASSISTED UP TO BATHROOM AND WITH URINAL TO VOID A FEW TIMES - URINE SPECIMEN SENT FOR TESTING. ALERT AND ORIENTED. CURRENTLY RESTING QUIETLY WITH CR LIGHT IN REACH.
[2020-03-26 04:12] LABS: Hematocrit 27.4 % (37.0-53.0); Hemoglobin 8.4 g/dL (13.5-17.5); Mean Corpuscular HGB 23.9 pg (26.0-34.0); Mean Corpuscular HGB Conc 30.7 g/dL (31.5-36.5); Mean Corpuscular Volume 78 fL (80-100); Platelet Count 278 K/mm3 (150-400); RDW Coefficient Variation 17.2 % (11.7-14.2); RDW Standard Deviation 49.1 fL (35.1-46.3); Red Blood Cell Count 3.51 M/mm3 (4.30-5.90); White Blood Cell Count 13.76 K/mm3 (4.00-11.30)
[2020-03-26 04:25] LABS: International Normalized Ratio 1.24; Prothrombin Time Results 13.1 Sec (9.7-11.5)
[2020-03-26 04:36] LABS: Albumin, Blood 2.1 g/dL (3.4-5.0); Albumin/Globulin Ratio 0.4 (0.8-1.8); Bilirubin, Total 0.8 mg/dL (0.1-1.0); Bun/Creatinine Ratio 27.4 (12.0-20.0); Calcium, Blood 8.5 mg/dL (8.5-10.1); Creatinine, Blood 1.68 mg/dL (0.60-1.20); Globulin, Blood 4.8 g/dL (2.2-4.0); Potassium, Blood 4.1 mmol/L (3.5-5.5); Total Protein, Blood 6.9 g/dL (6.4-8.2)
--- NOTE | 2020-03-26 12:41 | NUR ---
a+o, discussed options with pt, wanted to know what could be done to cure legs, suggested talking to dr about planned treatments, pointed out the various health problems he had that limited his options, asked to see someone about hospice, palliative care came and talked for a long time with pt, nurse called and palliative care agreed to also call her and present options, stated objective is to get home [place], will continue to monitor and treat until either leaves or noc shift assumes care
--- NOTE | 2020-03-26 14:33 | NUR ---
Initial palliative care consult: Samir is an 79 year old with a history of DM, valve replacement, chronic a-fib, dilated cardiomyopathy with EF 34-40% (Aug 2018), degenerative disc disease, CKD and non healing open areas to legs. Over the past several months he has been getting progressively weaker and his physical health has been declining per his , Shima. Shima stated "He has gone from bad to worse to terrible recently." When this chief writer first entered Samir's room today he was irritated and frustrated with his lack of physical healing. He was alert and oriented and actually became quite talkative about his feelings and fears during the visit. He is worried about his and the toll it will take on her when he becomes weaker and passes away. Samir is currently receiving wound care with [facility] . He lives with his , Shima, of 35 years. Shima has two adult sons who are available to help out if needed. Samir is struggling with his decline in physical status. He states he has always been active, adventurous and could fix or build anything. He is frustrated that his physical problems cannot be fixed. He states that he had a procedure in the past to help with wound healing to his legs that was not successful. He asked about possible options of skin grafting and amputation to treat his legs. Long discussion about how options for treating non-healing wounds to his lower legs are limited due to comorbidities he has. He expresses understanding and states that he wants to have some control in what happens to him "at the end." Discussed hospice as an option. Explained the program and how the focus is on improving his quality of life and letting him have some control in his care. Answered his questions and explained the difference between hospice and home health services which he currently has. Discussed comfort care as an option to start here in the hospital prior to discharge. Samir stated that his wishes are to go home and to have hospice services. He states he would like to start comfort care here in the hospital. Called and spoke to Shima after my conversation with Samir. Shima states she is very supportive of Samir's decision to come home with hospice. She reports he sleeps in a recliner in their front room and has a walker and is able to ambulate to the bathroom at this time. Asked if she would like a hospital bed and she stated that she wasn't sure that Samir would use it. She would like to speak with hospice nurse at the initial assessment and will see how Samir does once he comes home before a decision is made about the hospital bed. She reports that Samir currently receives wound care with [facility] and she is open to [facility] or [facility]. She reports good care from both [facility] and [facility] in the past and doesn't have a preference. Shima reports she has good support from her two grown sons and feels confident that she will be able to manage Samir's needs once he comes home. Spoke with Viviana, [facility] community medication care manager, after speaking with Shima. Viviana stated she will let Dr. Mock know about pt's decision to transition to comfort care and home with hospice and will have Dr. Mock place the orders in the EMR. Updated Radha in CM about pt's plan for hospice and my conversation with his . PC will continue to follow as needed for symptom managment.
--- NOTE | 2020-03-26 18:06 | NUR ---
a+o, changed to comfort care, will go home on hospice tomorrow, family in to visit and discuss change in code as well as plans for going home, saline locked, rm air, states he has more energy and is feeling better than he has for weeks, no significant negative changes noted during shift, continues to have shortterm memory issues, will continue to monitor and treat until share bsr with pt and noc nurse
--- NOTE | 2020-03-27 05:03 | NUR ---
SHIFT SUMMARY- PT. ON COMFORT CARE. HAD NO ACUTE EVENTS OVERNIGHT. C/O PAIN 1X TO THE LE. MEDICATED PER EMAR WITH GOOD EFFECT. PT. SLEPT ON/OFF T/O THE SHIFT, NO APPARENT DISTRESS NOTED. REPOSITIONED PRN AND FOR COMFORT. BLE COVERED WITH ELASTIC BANDAGE, C/D/I. PT. IS ABLE TO AMBULATE TO THE BATHROOM WITH WALKER AND SBA. CALLS APPROPRIATELY. DENIES ANY NEEDS AT THIS TIME. CALL LIGHT WITHIN REACH AND SIDE RAILS UP X2. WILL CONT TO MONITOR.
[2020-03-27 05:20] LABS: International Normalized Ratio 1.16; Prothrombin Time Results 12.3 Sec (9.7-11.5)
[2020-03-27] MEDS ORDERED: LORA.5 PO (11:23)
[2020-03-27] MEDS ORDERED: ACET325 PO (11:23)
[2020-03-27] MEDS ORDERED: MORP20L PO (11:24)
[2020-03-27] MEDS ORDERED: COMPAZINE10 MG PO (11:24)
[2020-03-27] MEDS ORDERED: ONDA4 PO (11:24)
--- NOTE | 2020-03-27 15:55 | NUR ---
discharge: reviewed medications, stay, procedures, wound care, hospice, and expectations for post hospital, assisted pt into home kathyl, a+o but anxous about what is going to happen
== END 2020-03-27 13:10 | disposition home or self-care (01) | DRG 812 ==
LOC: ER 13:13 → MEDS 16:01 → ENPENDDIS 03-27 08:30 → MEDS 03-27 13:10
PROVIDERS: Emergency Medicine; ADMIT Family Medicine
PROC: 30233N1 Transfusion of Nonautologous Red Blood Cells into Peripheral Vein, Percutaneous Approach (ICD-10-PCS; principal; 2020-03-26)
DX: D50.0 Iron deficiency anemia secondary to blood loss (chronic) (principal); I48.20 Chronic atrial fibrillation, unspecified; I42.0 Dilated cardiomyopathy; R82.71 Bacteriuria; Z51.5 Encounter for palliative care; D63.1 Anemia in chronic kidney disease; I95.9 Hypotension, unspecified; E11.22 Type 2 diabetes mellitus with diabetic chronic kidney disease; I12.9 Hypertensive chronic kidney disease with stage 1 through stage 4 chronic kidney disease, or unspecified chronic kidney disease; N18.3 Chronic kidney disease, stage 3 (moderate); Z79.4 Long term (current) use of insulin; D47.2 Monoclonal gammopathy; R62.7 Adult failure to thrive; N40.1 Benign prostatic hyperplasia with lower urinary tract symptoms; Z66 Do not resuscitate; T81.89XA Other complications of procedures, not elsewhere classified, initial encounter; Z86.73 Personal history of transient ischemic attack (TIA), and cerebral infarction without residual deficits
CPT/HCPCS: 36415; 36430; 70450; 80053; 81001; 82947; 84484; 85025; 85027; 85610; 85730; 86850; 86900; 86901; 86923; 87086; 93005; 93010; 99285-25; A9270; J0696; J1650; J7040; P9016